=== PATIENT | male | born 1955 | race Caucasian/White ===

== ENCOUNTER → 2019-10-25 | Outpatient (CLI) | payer BC ==
--- NOTE | 2019-10-25 17:03 | KCIC ---
Chest CT without contrast-CT low-dose lung screening Clinical indications: Smoker for 40 years. COMPARISON: None available. TECHNIQUE: Noncontrast low-dose CT scanning of the chest was performed. PQRS compliance Statement One or more of the following individualized dose reduction techniques were utilized for this study: 1. Automated exposure control 2. Adjustment of the mA and/or kV according to patient size 3. Use of iterative reconstruction technique FINDINGS:Small hiatal hernia is evident. No significantly enlarged thoracic lymphadenopathy is evident. No focal aneurysmal dilatation of the thoracic aorta is seen. Calcified atheromatous disease of the coronary arteries is seen. The heart size is normal and no pericardial effusion is seen. No adrenal mass is evident. No significant lung nodule is seen. No lung infiltrate or lung mass is evident. No pleural effusion or pneumothorax is seen. The proximal bronchial tree is patent. No adrenal mass is evident. No lytic process is seen. IMPRESSION: No lung nodule or lung infiltrate. Lung RADS category 1. Recommend annual screening study. Calcified atheromatous disease of the coronary arteries. Small hiatal hernia. Electronically signed by: Connor Lopez MD (10/25/2019 5:00 PM) [id number]
== END | disposition home or self-care (01) ==
LOC: KCIC CT 08:45
PROVIDERS: ATTEND Internal Medicine
DX: F17.210 Nicotine dependence, cigarettes, uncomplicated (principal)
CPT/HCPCS: G0297

== ENCOUNTER → 2019-10-27 | Outpatient (CLI) | payer BC ==
[~2019-10-27] MED LIST: ALBUTEROL SULFATE 2.5 MG/3 ML NEBU. NEB ONE
--- NOTE | 2019-10-27 18:19 | RESP ---
DATE OF SERVICE: 10/27/2019 ATTENDING PHYSICIAN: Dr. Crowder. The patient's FVC was 2.47, which is 63% predicted, FEV1 1.32, which is 45% predicted. The FEV1/FVC ratio was reduced. Post-bronchodilator, there was 17% improvement in FVC and 13% improvement in FEV1. Lung volume showed a total lung capacity of 160% predicted, residual volume 337% predicted. Diffusion capacity was markedly increased. IMPRESSION: 1. Moderate obstructive airway disease. 2. Excellent response to bronchodilators, suggesting a component of reactive airway disease. 3. Lung volumes consistent with air trapping and hyperinflation. 4. Increased diffusion capacity. MADI JOHNSON MD DR: ELAINE/adam JOB#: [id number] / [id number] NAVID Edmondson MD
== END | disposition home or self-care (01) ==
LOC: PF 07:52 → EDUNIT# 08:00
PROVIDERS: ATTEND Internal Medicine
DX: R06.09 Other forms of dyspnea (principal); J44.9 Chronic obstructive pulmonary disease, unspecified
CPT/HCPCS: 94060; 94618; 94640; 94726; 94729; J7613

== ENCOUNTER → 2019-11-04 | Outpatient (CLI) | payer BC ==
--- NOTE | 2019-11-04 11:14 | RAD ---
EXAM: Carotid Doppler sonogram. HISTORY: Carotid bruit. TECHNIQUE: Priest scale and color Doppler sonographic evaluation of the neck with spectral waveform analysis was performed and static images are submitted for review. FINDINGS: There is mild vascular plaque within the carotid bulbs and proximal internal and external carotid arteries. The peak systolic velocity within the right common carotid artery is 136 cm/sec. The peak systolic velocity within the right internal carotid artery is 137 cm/sec and the end diastolic velocity within the right internal carotid artery is 27 cm/sec. The right ICA/CCA ratio is 1.0. The peak systolic velocity within the left common carotid artery is 174 cm/sec. The peak systolic velocity within the left internal carotid artery is 147 cm/sec and the end diastolic velocity within the left internal carotid artery is 30 cm/sec. The left ICA/CCA ratio is 1.1. There is normal antegrade flow within both vertebral arteries. There are increased peak systolic velocities within the external carotid arteries, measuring 202 cm/s on the right and 229 cm/s on the left. There is also an elevated peak systolic velocity within the left subclavian artery measuring 313 cm/s. IMPRESSION: 1. Elevated peak systolic velocities within the left greater than right internal carotid arteries. Despite normal ICA to CCA ratios, this suggests 50-69% stenosis. 2. Elevated peak systolic velocities within the external carotid arteries and left subclavian artery, suggesting hemodynamically significant stenosis. PQRS Compliance Statement - Stenosis calculations for CT, MR and conventional angiography are based upon measurement of the distal ICA diameter in accordance with the NASCET methodology. Stenosis calculations for carotid ultrasound studies are derived from validated velocity criteria which are known to correlate with the NASCET methodology. Electronically signed by: Roma Vann MD (11/04/2019 11:11 AM) [place] [id number]
== END | disposition home or self-care (01) ==
LOC: US 08:26 → EDUNIT# 09:30
PROVIDERS: ATTEND Internal Medicine
DX: I65.23 Occlusion and stenosis of bilateral carotid arteries (principal)
CPT/HCPCS: 93880

== ENCOUNTER 2021-01-20 16:49 | Emergency (ER) | payer BC, OTHER ==
[~2021-01-20] VITALS: Ht 170.2 cm; Wt 64.0 kg
[2021-01-20 18:36] LABS: BASO # 0.1 x10^3/uL (0.0-0.2); BASO % 1 % (0-3); EOS # 0.4 x10^3/uL (0.0-0.7); EOS % 4 % (0-3); HEMATOCRIT 43.6 % (39.0-53.0); HEMOGLOBIN 14.7 g/dL (13.0-17.5); LYMPH # 0.8 x10^3/uL (1.0-4.8); LYMPH % 8 % (24-48); MEAN CORPUSCULAR HEMOGLOBIN 32 pg (25-35); MEAN CORPUSCULAR HGB CONC 34 g/dL (31-37); MEAN CORPUSCULAR VOLUME 94 fL (79-100); MONO # 0.9 x10^3/uL (0.0-1.1); MONO % 8 % (0-9); NEUT # 8.3 x10^3/uL (1.8-7.7); NEUT % 79 % (31-73); PLATELET COUNT 247 x10^3/uL (140-400); RED BLOOD COUNT 4.63 x10^6/uL (4.30-5.70); RED CELL DISTRIBUTION WIDTH 13.3 % (11.5-14.5); WHITE BLOOD COUNT 10.4 x10^3/uL (4.0-11.0)
--- NOTE | 2021-01-20 18:40 | PHYS DOC ---
Past Medical History Past Medical History: COPD, Diabetes-Type II, High Cholesterol, Hypertension Past Surgical History: Other Additional Past Surgical Histo: R FOREARM, LEFT LOWER EXTREMITY SKIN GRAFT Smoking Status: Current Every Day Smoker Alcohol Use: Occasionally General Adult EDM: Chief Complaint: SHORTNESS OF BREATH HPI: HPI: Patient is a 65 year old male with past medical history of hypertension, diabetes, COPD presents with the chief complaint of shortness of breath. Onset of SOB 3 days ago- progressively worse. Associated cough with sputum production. Denies fever or chills. Has been using home medications with mild relief. Patient states current symptoms typical of past copd exacerbation. Denies Chest pain. Review of Systems: Review of Systems: Constitutional: Denies fever or chills. [] Eyes: Denies change in visual acuity. [] HENT: Denies nasal congestion or sore throat. [] Respiratory: positive sob positive cough Cardiovascular: Denies chest pain or edema. [] GI: Denies abdominal pain, nausea, vomiting, bloody stools or diarrhea. [] : Denies dysuria. [] Musculoskeletal: Denies back pain or joint pain. [] Integument: Denies rash. [] Neurologic: Denies headache, focal weakness or sensory changes. [] Endocrine: Denies polyuria or polydipsia. [] Lymphatic: Denies swollen glands. [] Psychiatric: Denies depression or anxiety. [] Heart Score: C/O Chest Pain: N/A Risk Factors: Risk Factors: DM, Current or recent (<one month) smoker, HTN, HLP, family history of CAD, obesity. Risk Scores: Score 0 - 3: 2.5% MACE over next 6 weeks - Discharge Home Score 4 - 6: 20.3% MACE over next 6 weeks - Admit for Clinical Observation Score 7 - 10: 72.7% MACE over next 6 weeks - Early Invasive Strategies Allergies: Allergies: Allergies Coded Allergies Type Severity Reaction Last Updated Verified No Known Medication Allergies Allergy Unknown 10/27/19 Yes Physical Exam: PE: Constitutional: Well developed, well nourished, no acute distress, non-toxic appearance. [] HENT: Normocephalic, atraumatic, bilateral external ears normal, oropharynx moist, no oral exudates, nose normal. [] Eyes: PERRLA, EOMI, conjunctiva normal, no discharge. [] Neck: Normal range of motion, no tenderness, supple, no stridor. [] Cardiovascular:Heart rate regular rhythm, no murmur [] Lungs & Thorax: expiratory wheeze upper varghese bilateral,tachypnea, 93% of 2L, mild respiratory distress Abdomen: Bowel sounds normal, soft, no tenderness, no masses, no pulsatile masses. [] Skin: Warm, dry, no erythema, no rash. [] Back: No tenderness, no CVA tenderness. [] Extremities: No tenderness, no cyanosis, no clubbing, ROM intact, no edema. [] Neurologic: Alert and oriented X 3, normal motor function, normal sensory function, no focal deficits noted. [] Psychologic: Affect normal, judgement normal, mood normal. [] Current Patient Data: Vital Signs: Vital Signs Date Time Temp Pulse Resp B/P (MAP) Pulse Ox O2 Delivery O2 Flow Rate FiO2 01/20/21 17:57 97.6 105 26 158/67 (97) 88 Room Air 97.6 EKG: EKG: [] Radiology/Procedures: Radiology/Procedures: [] Impression: FINDINGS: The cardiomediastinal silhouette is within normal limits. Lungs are clear. There are no significant pleural effusions. There is no pulmonary vascular congestion. No pneumothorax. No suspicious osseous abnormality. IMPRESSION: There is no acute cardiopulmonary process. Course & Med Decision Making: Course & Med Decision Making Pertinent Labs and Imaging studies reviewed. (See chart for details) [] Patient was evaluated for chief complaint. Work-up consisted of laboratory analysis and radiologic imaging. Results reviewed and discussed with patient. Chest x-ray without focal infiltrate. EKG no acute abnormalities. Patient was treated with Solu-Medrol and DuoNeb. Post treatment patient states he feels better. He states he would like to go home. Home prescription will include prednisone and doxycycline Dragon Disclaimer: Dragon Disclaimer: This electronic medical record was generated, in whole or in part, using a voice recognition dictation system. Departure Departure Impression: Primary Impression: COPD exacerbation Disposition: 01 DC HOME SELF CARE/HOMELESS Condition: STABLE Referrals: NAVID TRAN MD (PCP) Patient Instructions: Chronic Obstructive Pulmonary Disease Exacerbation Scripts Doxycycline Hyclate (DOXYCYCLINE HYCLATE) 100 Mg Capsule 1 CAP PO BID, #20 CAP Prov: NEHA ARREOLA DO 01/20/21 Prednisone (PREDNISONE) 20 Mg Tablet 1 TAB PO UD for 12 Days, #15 TAB Take 2 tabs days 1,2,3 1.5 tabs days 3,4,5 1 tab days 6,7,8 0.5 tab days 9,10,11 Prov: NEHA ARREOLA DO 01/20/21 NEHA ARREOLA DO Jan 20, 2021 18:40
[2021-01-20 19:00] VITALS: BP 175/111
[2021-01-20] MEDS ORDERED: IPRATRPIUM/ALBUTEROL 0.5/2.5MG 3 ML NEBU. NEB ONE (19:00)
[2021-01-20] MEDS ORDERED: methylPREDNISolone SOD SUCC PF 125 MG/2 ML VIAL. IV ONE (19:00)
--- NOTE | 2021-01-20 19:09 | RAD ---
XR CHEST 1V 01/20/2021 6:49 PM INDICATION: Shortness of breath COMPARISON: None available TECHNIQUE: Portable frontal view of the chest is provided. FINDINGS: The cardiomediastinal silhouette is within normal limits. Lungs are clear. There are no significant pleural effusions. There is no pulmonary vascular congestion. No pneumothora x. No suspicious osseous abnormality. IMPRESSION: There is no acute cardiopulmonary process. Electronically signed by: Jeanna Soares MD (01/20/2021 7:07 PM) [facility]
--- NOTE | 2021-01-20 19:53 | EKG ---
[facility] [address] [place] [address] Test Date: 2021-01-20 Test Time: 17:26:40 Pat Name: JAMMIE HERNANDEZ Department: Room: Gender: M Winding Operator: : 1955 Requested By: NEHA ARREOLA Order Number: [id number] Reading MD: Measurements Intervals [place] Rate: 102 P: -90 HI: 120 QRS: 87 QRSD: 74 T: 78 QT: 304 QTc: 400 Interpretive Statements SUPRAVENTRICULAR RHYTHM QRS(T) CONTOUR ABNORMALITY CONSISTENT WITH ANTEROSEPTAL INFARCT AGE UNDETERMINED T ABNORMALITY IN ANTERIOR LEADS ABNORMAL ECG RI6.02 No previous ECG available for comparison
[2021-01-20 20:00] LABS: CREATININE 1.2 mg/dL (0.7-1.3); GFR 61.1; POTASSIUM 4.2 mmol/L (3.5-5.1)
[2021-01-20] MEDS ORDERED: PRED20TA PO (20:00)
[2021-01-20] MEDS ORDERED: DOXY100C2 PO (20:00)
[2021-01-20 20:12] LABS: ALBUMIN 3.9 g/dL (3.4-5.0); ALBUMIN/GLOBULIN RATIO 1.1 (1.0-1.7); TOTAL BILIRUBIN 0.3 mg/dL (0.2-1.0); TOTAL PROTEIN 7.4 g/dL (6.4-8.2)
--- NOTE | 2021-01-22 09:03 | NUR ---
IP: Informed pt of negative COVID test. Pt verbalized understanding.
== END 2021-01-20 20:47 | disposition home or self-care (01) ==
LOC: ER 16:49
DX: J44.1 Chronic obstructive pulmonary disease with (acute) exacerbation (principal); Z20.822 Contact with and (suspected) exposure to COVID-19; E11.9 Type 2 diabetes mellitus without complications; I10 Essential (primary) hypertension; F17.200 Nicotine dependence, unspecified, uncomplicated; Z98.890 Other specified postprocedural states; Z88.8 Allergy status to other drugs, medicaments and biological substances
CPT/HCPCS: 36415; 71045; 80053; 84484; 85025; 87070; 87880; 93005; 94640; 96374; 99285; J2930; U0003

== ENCOUNTER 2021-12-06 13:44 | Inpatient (IN) | payer OTHER ==
[~2021-12-06] VITALS: Ht 167.6 cm; Wt 65.7 kg
[~2021-12-06 13:44] MED LIST changes: -ALBUTEROL SULFATE 2.5 MG/3 ML NEBU. NEB ONE; +DOXY100C3 PO; +PRED20TA PO
--- NOTE | 2021-12-06 15:04 | RAD ---
INDICATION: Reason: soa / Spl. Instructions: / History: COMPARISON: January 20, 2021 FINDINGS: Single view of chest obtained. Enlarged cardiomediastinal Silhouette with calcific atherosclerosis. There is some suspected enlarged lymph nodes in the mediastinum. Fullness of the rod. Suspected nodu lar opacities most prominent in the right upper lung measuring up to about 16 mm. IMPRESSION: * Nodular opacities most prominent in the right upper lung. Could be infectious or inflammatory nodu les but neoplastic disease such as primary lung mass or metastatic disease is also within the differe ntial. Would obtain a follow-up in a few weeks to ensure this appropriately resolves to exclude neopl astic cause. Alternatively a CT could be obtained to further assess. Electronically signed by: Aayush Camp MD (12/06/2021 3:01 PM) [id number]
--- NOTE | 2021-12-06 15:05 | PHYS DOC ---
Past Medical History Past Medical History: COPD, Diabetes-Type II, High Cholesterol, Hypertension Past Surgical History: Other Additional Past Surgical Histo: R FOREARM, LEFT LOWER EXTREMITY SKIN GRAFT Smoking Status: Current Every Day Smoker Alcohol Use: Occasionally General Adult EDM: Chief Complaint: ABNORMAL LABS HPI: HPI: Patient is a 66 year old who presents with was called by his primary care doctor to come in for a hemoglobin of 4.5. Patient states for the last couple weeks he has not felt very well and thought it was his COPD acting up. He states he cannot walk far without getting very short of breath. He states at times he will stand up and feel like he is going to pass out. He states he has not passed out. He states that 5 weeks ago he stopped smoking and soon after he stopped smoking began coughing a lot and so he went to his primary care provider. He states that they put him on doxycycline and steroids. He states h e finished that and then went back because he still felt like he was not feeling well and his chest was still tight. He states that they put him on another round of doxycycline which he just finished 3 to 4 days ago. He states that he went and to see his primary care doctor yesterday at which time the gave him another prescription for another round of steroid by mouth that he is to start tomorrow. He states he also did blood work. Patient denies syncope, chest pain, vision change, new numbness or tingling, focal weakness, headache, gavin pain, nausea, vomiting, diarrhea, fever, blood in his stool, vomiting blood, blood in his urine, back pain. He denies any pain at this time. He has a history of diabetes, COPD, hypertension, high cholesterol. Review of Systems: Review of Systems: Constitutional: Denies fever or chills. [] Eyes: Denies change in visual acuity. [] HENT: Denies nasal congestion or sore throat. [] Respiratory: Denies cough or +shortness of breath with exertion. [] Cardiovascular: Denies chest pain or edema. [] GI: Denies abdominal pain, nausea, vomiting, bloody stools or diarrhea. [] : Denies dysuria. [] Musculoskeletal: Denies back pain or joint pain. + Fatigue [] Integument: Denies rash. [] Neurologic: Denies headache, focal weakness or sensory changes. + Dizziness upon standing [] Endocrine: Denies polyuria or polydipsia. [] Lymphatic: Denies swollen glands. [] Psychiatric: Denies depression or anxiety. [] Heart Score: C/O Chest Pain: No Risk Factors: Risk Factors: DM, Current or recent (<one month) smoker, HTN, HLP, family history of CAD, obesity. Risk Scores: Score 0 - 3: 2.5% MACE over next 6 weeks - Discharge Home Score 4 - 6: 20.3% MACE over next 6 weeks - Admit for Clinical Observation Score 7 - 10: 72.7% MACE over next 6 weeks - Early Invasive Strategies Allergies: Allergies: Allergies Coded Allergies Type Severity Reaction Last Updated Verified No Known Medication Allergies Allergy Unknown 10/27/19 Yes Physical Exam: PE: Constitutional: Well developed, well nourished, no acute distress, non-toxic appearance. [] HENT: Normocephalic, atraumatic, bilateral external ears normal, oropharynx moist, no oral exudates, nose normal. [] Eyes: PERRLA, EOMI, conjunctiva normal, no discharge. [] Neck: Normal range of motion, no tenderness, supple, no stridor. [] Cardiovascular:Heart rate tachycardia regular rhythm, no murmur [] Lungs & Thorax: Bilateral upper breath sounds clear and lower diminished to auscultation [] Abdomen: Bowel sounds normal, soft, no tenderness, no masses, no pulsatile masses. [] Skin: Warm, dry, no erythema, no rash. Pale[] Back: No tenderness, no CVA tenderness. [] Extremities: No tenderness, no cyanosis, no clubbing, ROM intact, no edema. [] Neurologic: Alert and oriented X 3, normal motor function, normal sensory function, no focal deficits noted. [] Psychologic: Affect normal, judgement normal, mood normal. [] Current Patient Data: Vital Signs: Vital Signs Date Time Temp Pulse Resp B/P (MAP) Pulse Ox O2 Delivery O2 Flow Rate FiO2 12/06/21 14:31 95 20 131/66 (87) 97 Room Air 12/06/21 13:52 97.7 97.7 EKG: EK by Dr. Hi as a sinus rhythm and no STEMI Radiology/Procedures: Radiology/Procedures: [] Impression: [facility] [address] [place] [address] IMAGING REPORT Signed PATIENT: JAMMIE HERNANDEZ: [id number] : 1955 LOCATION: ER AGE: 66 SEX: M EXAM STATUS: REG ER ORD. PHYSICIAN: GET TOLEDO APRN REASON: soa PROCEDURE: PORTABLE CHEST 1V INDICATION: Reason: soa / Spl. Instructions: / History: COMPARISON: January 20, 2021 FINDINGS: Single view of chest obtained. Enlarged cardiomediastinal Silhouette with calcific atherosclerosis. There is some suspected enlarged lymph nodes in the mediastinum. Fullness of the rod. Suspected nodular opacities most prominent in the right upper lung measuring up to about 16 mm. IMPRESSION: * Nodular opacities most prominent in the right upper lung. Could be infectious or inflammatory nodules but neoplastic disease such as primary lung mass or metastatic disease is also within the differential. Would obtain a follow-up in a few weeks to ensure this appropriately resolves to exclude neoplastic cause. Alternatively a CT could be obtained to further assess. Electronically signed by: Ghassan Johns MD (12/06/2021 3:01 PM) [id number] DICTATED and SIGNED BY: GHASSAN JOHNS MD DATE: 12/06/21 [id number] [facility] [address] [place] [address] IMAGING REPORT Signed PATIENT: JAMMIE HERNANDEZ: [id number] : 1955 LOCATION: ER AGE: 66 SEX: M EXAM STATUS: REG ER ORD. PHYSICIAN: GET TOLEDO APRN REASON: LOW HEMOGLOBIN WITHOUT KNOWN SOURCE, CHEST XRAY ABNORMAL PROCEDURE: CT CHEST ABD PELVIS W/CONTRAST CT chest, abdomen and pelvis with contrast PQRS statement: CT scans at this facility use dose reduction including either automated exposure control, iterative reconstructions, and /or weight based rad iation dosing via mA and kV modification when appropriate to reduce radiation dose to as low as reasonably achievable. Contrast: 75 mL Omnipaque 300 intravenous contrast. HISTORY: Anemia. Low hemoglobin. COMPARISON: CT chest October 25, 2019 Chest findings: Calcified plaque of coronary artery and of the thoracic aorta. Heart size is normal. Pulmonary vessels and esophagus are unremarkable. No enlarged adenopathy in the chest evident. Tiny subcentimeter thickness pleural effusions along the posterior diaphragms and lower lung bases. Trachea and bronchi are unremarkable. No pulmonary edema evident. At the right upper lobe above the fissures there are groundglass opacities as well as some solid nodular densities within groundglass halos most of which measures 10 mm or less in size, with exception of a more dominant larger opacity on image 34 measures 2.3 cm. Bones are unremarkable. Abdomen findings: Lumbar disc disease, there are mild endplate deformities with bony sclerosis likely Schmorl's nodes from degenerative disc disease involving the L3 vertebral endplates. Pancreas, spleen, adrenal glands, kidneys, liver and gallbladder are unremarkable. No obstruction or inflammation of the GI tract. No abdominal fluid or adenopathy. The aorta and iliac artery calcified plaque. Pelvis findings: Bladder, prostate, rectum and bones are unremarkable. No pelvic fluid or adenopathy. IMPRESSION: 1. Solid nodular pulmonary opacities of the right upper lobe measuring up to 2.3 cm in size and groundglass opacities, most likely bronchopneumonia. Follow-up CT imaging in 3 months is advised to document this resolves to exclude the possibility of malignant nodules. 2. Very small pleural effusions. 3. Subtle bony sclerosis of the L3 lumbar vertebra. This is associated with chr onic endplate Schmorl's nodes defects from degenerative disc disease and is possible this is reactive bony sclerosis. Bony sclerosis due to a subtle underlying pathologic osteoblastic bony lesion may not be excluded for which this can be definitively assessed with MR imaging. Electronically signed by: Yesika Pinto MD (12/06/2021 4:14 PM) [facility] DICTATED and SIGNED BY: YESIKA PNITO MD DATE: 12/06/21 [id number] Course & Med Decision Making: Course & Med Decision Making Pertinent Labs and Imaging studies reviewed. (See chart for details) COVID-19 CRITERIA: The patient was evaluated during the global COVID-19 pandemic, and that diagnosis was suspected/considered upon their initial presentation. Their evaluation, treatment and testing was consistent with current guidelines for patients who present with complaints or symptoms that may be related to COVID-19. See HPI. Alert and oriented x4. Ambulatory steady gait. Speaks in full clear sentences. Pale. Tachycardic. Abdomen soft and nontender. Patient is Covid positive and influenza B positive. His hemoglobin is 4.5. I have ordered 2 units of red blood cells. Patient admitted to hospitalist. Rectal Exam: Normal tone, No mass, Positive control Stool: yellow, no blood seen Guaiac: Negative [] Dragon Disclaimer: Harini Disclaimer: This electronic medical record was generated, in whole or in part, using a voice recognition dictation system. COVID-19 Patient Risks: Age 65 or older: No Sign of co-morbidity: Yes Exp to person + for COVID: Yes Exp to PUI: Yes Travel from affected area: No Lower respiratory symptoms: Yes Fever: No Other: Yes (SOA, FATIGUE) PPE Use: Full PPE with N95 mask or PAPR: Yes Departure Departure Impression: Primary Impression: Low hemoglobin Additional Impressions: COVID-19 Influenza B Pneumonia Qualified Codes: J18.9 - Pneumonia, unspecified organism Disposition: ADMITTED INPATIENT Admitting Physician: ARTIS Condition: STABLE Referrals: NAVID TRAN MD (PCP) GET TOLEDO APRN Dec 06, 2021 15:05
[2021-12-06 15:09] LABS: BASO % 0 % (0-3); EOS % 0 % (0-3); HEMATOCRIT 15.9 % (39.0-53.0); LYMPH # 0.4 x10^3/uL (1.0-4.8); LYMPH % 4 % (24-48); MEAN CORPUSCULAR HEMOGLOBIN 20 pg (25-35); MEAN CORPUSCULAR HGB CONC 28 g/dL (31-37); MEAN CORPUSCULAR VOLUME 71 fL (79-100); MONO # 0.9 x10^3/uL (0.0-1.1); MONO % 8 % (0-9); NEUT # 10.7 x10^3/uL (1.8-7.7); NEUT % 89 % (31-73); PLATELET COUNT 290 x10^3/uL (140-400); RED BLOOD COUNT 2.25 x10^6/uL (4.30-5.70); RED CELL DISTRIBUTION WIDTH 19.6 % (11.5-14.5); WHITE BLOOD COUNT 12.1 x10^3/uL (4.0-11.0)
[2021-12-06 15:11] LABS: HEMOGLOBIN 4.5 g/dL (13.0-17.5)
[2021-12-06] MEDS ORDERED: diphenhydrAMINE ORAL ELIXIR 12.5 MG/5 ML ML PO PRN (15:15)
[2021-12-06] MEDS ORDERED: ACETAMINOPHEN 325 MG TABLET. PO PRN ×2 (15:15→17:00)
[2021-12-06] MEDS ORDERED: diphenhydrAMINE HCL 25 MG CAPSULE PO PRN (15:15)
[2021-12-06 15:17] LABS: CALCIUM 8.4 mg/dL (8.5-10.1); CREATININE 1.4 mg/dL (0.7-1.3); POTASSIUM 5.1 mmol/L (3.5-5.1)
[2021-12-06 15:24] LABS: ALBUMIN 3.1 g/dL (3.4-5.0); ALBUMIN/GLOBULIN RATIO 0.9 (1.0-1.7); TOTAL BILIRUBIN 0.4 mg/dL (0.2-1.0); TOTAL PROTEIN 6.4 g/dL (6.4-8.2)
[2021-12-06 15:28] LABS: PROTHROMBIN TIME PATIENT 13.3 SEC (11.7-14.0)
[2021-12-06] MEDS ORDERED: IOHEXOL 300 MG/ML 100ML VIAL. IV ONE (15:45)
[2021-12-06] MEDS ORDERED: CONTRAST GIVEN. MC PRN (15:45)
[2021-12-06 15:49] LABS: % BANDS 5 % (0-9); % LYMPHS 1 % (24-48); % MONOS 3 % (0-10); % SEGS 91 % (35-66); NUCLEATED RBC 2
[2021-12-06 15:54] LABS: ANISOCYTOSIS SLIGHT; HYPOCHROMIA MARKED; MICROCYTOSIS MOD; PLT ESTIMATE ADEQUATE (ADEQUATE); POIKILOCYTOSIS MOD; POLYCHROMASIA MOD
[2021-12-06 16:12] LABS: BIZZARE CELLS FEW; OVALOCYTES FEW; SCHISTOCYTES OCC; SPHEROCYTES OCC; STOMATOCYTES FEW; TEAR DROP CELLS OCC
--- NOTE | 2021-12-06 16:16 | RAD ---
CT chest, abdomen and pelvis with contrast PQRS statement: CT scans at this facility use dose reduction including either automated exposure cont rol, iterative reconstructions, and /or weight based radiation dosing via mA and kV modification when appropriate to reduce radiation dose to as low as reasonably achievable. Contrast: 75 mL Omnipaque 300 intravenous contrast. HISTORY: Anemia. Low hemoglobin. COMPARISON: CT chest October 25, 2019 Chest findings: Calcified plaque of coronary artery and of the thoracic aorta. Heart size is normal. Pulmonary vessels and esophagus are unremarkable. No enlarged adenopathy in the chest evident. Tiny subcentimeter thickness pleural effusions along the posterior diaphragms and lower lung bases. Trache a and bronchi are unremarkable. No pulmonary edema evident. At the right upper lobe above the fissure s there are groundglass opacities as well as some solid nodular densities within groundglass halos mo st of which measures 10 mm or less in size, with exception of a more dominant larger opacity on image 34 measures 2.3 cm. Bones are unremarkable. Abdomen findings: Lumbar disc disease, there are mild endplate deformities with bony sclerosis likely Schmorl's nodes from degenerative disc disease involving the L3 vertebral endplates. Pancreas, splee n, adrenal glands, kidneys, liver and gallbladder are unremarkable. No obstruction or inflammation of the GI tract. No abdominal fluid or adenopathy. The aorta and iliac artery calcified plaque. Pelvis findings: Bladder, prostate, rectum and bones are unremarkable. No pelvic fluid or adenopathy. IMPRESSION: 1. Solid nodular pulmonary opacities of the right upper lobe measuring up to 2.3 cm in size and groun dglass opacities, most likely bronchopneumonia. Follow-up CT imaging in 3 months is advised to docume nt this resolves to exclude the possibility of malignant nodules. 2. Very small pleural effusions. 3. Subtle bony sclerosis of the L3 lumbar vertebra. This is associated with chronic endplate Schmorl' s nodes defects from degenerative disc disease and is possible this is reactive bony sclerosis. Bony sclerosis due to a subtle underlying pathologic osteoblastic bony lesion may not be excluded for whic h this can be definitively assessed with MR imaging. Electronically signed by: Zafar Pinto MD (12/06/2021 4:14 PM) [facility]
[2021-12-06 16:33] LABS: INFLUENZA A PATIENT NEGATIVE (NEGATIVE)
[2021-12-06 16:34] LABS: INFLUENZA B PATIENT POSITIVE (NEGATIVE)
[2021-12-06 16:50] LABS: FECAL OB PT NEGATIVE (NEG)
--- NOTE | 2021-12-06 16:52 | PDOC1 ---
History and Physical Date of Admission Date of Admission DATE: 12/06/21 TIME: 16:51 Identification/Chief Complaint Chief Complaint Shortness of breath Source Source: Patient History of Present Illness History of Present Illness Mr Irby is a 66 yo male with PMHx COPD, DM2, HLD, HTN who presents to ED accompanied by his for further assessment of outpatient Hb 4.5 noted by his primary care physician. He also complains of progressive shortness of breath has been worsening over the past 3 weeks. He quit smoking 5 weeks ago and initially felt he was having a COPD exacerbation and was changed from a Wixela inhaler to Trelegy inhaler. He is finished 2 rounds of doxycycline and steroids over the past 3 weeks and was about to start another dose of steroids on 12/07/2021 when above lab findings were discovered. He has been feeling progressively more weak over the past week as well. He has not noted any blood in his stool and has never had a colonoscopy but he has had outpatient Hemoccults though previously been negative. No chest pain no abdominal pain no nausea vomiting diarrhea. No urinary complaints. No changes in his blood sugar. He is up-to-date with COVID-19 vaccinations including booster has been vaccinated against influenza. Labs with WBC 12.1, Hb 4.5 with MCV 71, platelets 290, INR 1, PT T 26, NA 143, K5.1, BUN 34, CR 1.4, glucose 107, calcium 8.4, bilirubin 0.4, AST 19, ALT 46, alkaline phosphatase 62, LDH 166, albumin 3.1, NT proBNP is 2221, ED fecal occult was negative however her ED staff notes there is actually no stool in the sample, rapid COVID-19 was positive and rapid influenza B+. Chest radiograph concerning for nodular opacities in the right upper lung. CT chest abdomen pelvis with no opacity in the right upper lobe lower lobe 2.3 cm with groundglass opacities concerning for bronchopneumonia. L3 bony abnormality nonspecific. Admitted for further care. Past Medical History Cardiovascular: HTN, Hyperlipidemia Endocrine: Diabetes Past Surgical History Past Surgical History left leg skin grafting. Right forearm I&D Family History Family History: Diabetes, High Cholestrol, Hypertension Social History Smoke: Quit (10/2021) ALCOHOL: rare Drugs: None Current Problem List Problem List Problems Medical Problems: (1) COVID-19 Status: Acute (2) Influenza B Status: Acute (3) Low hemoglobin Status: Acute (4) Pneumonia Status: Acute Current Medications Current Medications Current Medications Acetaminophen (Tylenol) 650 mg 1X PRN PRN PO PRE-TRANSFUSION; Start 12/06/21 at 15:15; Stop 12/07/21 at 15:14 Diphenhydramine HCl (Benadryl Oral Elixir) 12.5 mg 1X PRN PRN PO PRE- TRANSFUSION; Start 12/06/21 at 15:15; Stop 12/07/21 at 15:14 Diphenhydramine HCl (Benadryl) 25 mg PRN 1X PRN PO PRE-TRANSFUSION; Start 12/06/21 at 15:15; Stop 12/07/21 at 15:14 Iohexol (Omnipaque 300 Mg/ml) 60 ml 1X ONCE IV Last administered on 12/06/21at 15:55; Start 12/06/21 at 15:45; Stop 12/06/21 at 15:46; Status DC Info (CONTRAST GIVEN -- Rx MONITORING) 1 each PRN DAILY PRN MC SEE COMMENTS; Start 12/06/21 at 15:45; Stop 12/08/21 at 15:44 Active Scripts Active Doxycycline Hyclate 100 Mg Capsule 1 Cap PO BID Prednisone 20 Mg Tablet 1 Tab PO UD 12 Days Take 2 tabs days 1,2,3 1.5 tabs days 3,4,5 1 tab days 6,7,8 0.5 tab days 9,10,11 Allergies Allergies: Coded Allergies: No Known Medication Allergies (Verified Allergy, Unknown, 10/27/19) NO KNOWN DRUG/MEDICATION OR LATEX ALLERGIES ROS General: YES: Fatigue, Malaise; No: Chills, Night Sweats, Appetite, Other PSYCHOLOGICAL ROS: No: Anxiety, Behavioral Disorder, Concentration difficultie, Decreased libido, Depression, Disorientation, Hallucinations, Hostility, Irritablity, Memory difficulties, Mood Swings, Obsessive thoughts, Physical abuse, Sexual abuse, Sleep disturbances, Suicidal ideation, Other Eyes: No Blurry vision, No Decreased vision, No Double vision, No Dry eyes, No Excessive tearing, No Eye Pain, No Itchy Eyes, No Loss of vision, No Photophobia, No Scotomata, No Uses contacts, No Uses glasses, No Other HEENT: No: Heacaches, Visual Changes, Hearing change, Nasal congestion, Nasal discharge, Oral lesions, Sinus pain, Sore Throat, Epistaxis, Sneezing, Snoring, Tinnitus, Vertigo, Vocal changes, Other ALLERGY AND IMMUNOLOGY: No: Hives, Insect Bite Sensitivity, Itchy/Watery Eyes, Nasal Congestion, Post Nasal Drip, Seasonal Allergies, Other Hematological and Lymphatic: No: Bleeding Problems, Blood Clots, Blood Transfusions, Brusing, Night Sweats, Pallor, Swollen Lymph Nodes, Other ENDOCRINE: No: Breast Changes, Galactorrhea, Hair Pattern Changes, Hot Flashes, Malaise/lethargy, Mood Swings, Palpitations, Polydipsia/polyuria, Skin Changes, Temperature Intolerance, Unexpected Weight Changes, Other Breast: No New/Changing Breast Lumps, No Nipple changes, No Nipple discharge, No Other Respiratory: YES: Cough, Shortness of breath, SOB with excertion, Wheezing; No: Hemoptysis, Orthopnea, Pleuritic Pain, Sputum Changes, Stridor, Tachypnea, Other Cardiovascular: No Chest Pain, No Palpitations, No Orthopnea, No Paroxysmal Noc. Dyspnea, No Edema, No Lt Headedness, No Other Gastrointestinal: No Nausea, No Vomiting, No Abdominal Pain, No Diarrhea, No Constipation, No Melena, No Hematochezia, No Other Genitourinary: No Dysuria, No Frequency, No Incontinence, No Hematuria, No Retention, No Discharge, No Urgency, No Pain, No Flank Pain, No Other, No , No , No , No , No , No , No Musculoskeletal: No Gait Disturbance, No Joint Pain, No Joint Stiffness, No Joint Swelling, No Muscle Pain, No Muscular Weakness, No Pain In:, No Swelling In:, No Other Neurological: No Behavorial Changes, No Bowel/Bladder ControlChng, No Confusion, No Dizziness, No Gait Disturbance, No Headaches, No Impaired Coord/balance, No Memory Loss, No Numbness/Tingling, No Seizures, No Speech Problems, No Tremors, No Visual Changes, No Weakness, No Other Skin: No Dry Skin, No Eczema, No Hair Changes, No Lumps, No Mole Changes, No Mottling, No Nail Changes, No Pruritus, No Rash, No Skin Lesion Changes, No Other, No Acne Physical Exam General: Alert, Oriented X3, Cooperative, moderate distress HEENT: Atraumatic, PERRLA, EOMI, Other (pale oral mucosa) Lungs: Other (Right sided rhonchi and crackles, diffuse wheezes) Heart: S1S2, RRR, no thrills, no rubs, no gallops, no murmurs Abdomen: Normal bowel sounds, Soft, No tenderness, No hepatosplenomegaly, No m asses Rectal Exam: not examined Extremities: No clubbing, No cyanosis, No edema, Normal pulses, No tenderness/swelling Skin: No rashes, No breakdown, No significant lesion Neuro: Normal gait, Normal speech, Strength at 5/5 X4 ext, Normal tone, Sensation intact, Cranial nerves 3-12 NL, Reflexes 2+ Psych/Mental Status: Mental status NL, Mood NL Vitals Vitals Vital Signs Date Time Temp Pulse Resp B/P (MAP) Pulse Ox O2 Delivery O2 Flow Rate FiO2 12/06/21 15:52 84 18 164/79 (107) 98 Room Air 12/06/21 13:52 97.7 97.7 Labs Labs Laboratory Tests Test 12/06/21 14:55 12/06/21 15:53 12/06/21 16:35 White Blood Count 12.1 x10^3/uL (4.0-11.0) Red Blood Count 2.25 x10^6/uL (4.30-5.70) Hemoglobin 4.5 g/dL (13.0-17.5) Hematocrit 15.9 % (39.0-53.0) Mean Corpuscular Volume 71 fL (79-100) Mean Corpuscular Hemoglobin 20 pg (25-35) Mean Corpuscular Hemoglobin Concent 28 g/dL (31-37) Red Cell Distribution Width 19.6 % (11.5-14.5) Platelet Count 290 x10^3/uL (140-400) Neutrophils (%) (Auto) 89 % (31-73) Lymphocytes (%) (Auto) 4 % (24-48) Monocytes (%) (Auto) 8 % (0-9) Eosinophils (%) (Auto) 0 % (0-3) Basophils (%) (Auto) 0 % (0-3) Neutrophils # (Auto) 10.7 x10^3/uL (1.8-7.7) Lymphocytes # (Auto) 0.4 x10^3/uL (1.0-4.8) Monocytes # (Auto) 0.9 x10^3/uL (0.0-1.1) Eosinophils # (Auto) 0.0 x10^3/uL (0.0-0.7) Basophils # (Auto) 0.0 x10^3/uL (0.0-0.2) Segmented Neutrophils % 91 % (35-66) Band Neutrophils % 5 % (0-9) Lymphocytes % 1 % (24-48) Monocytes % 3 % (0-10) Nucleated Red Blood Cells 2 Platelet Estimate Adequate (ADEQUATE) Polychromasia Mod Hypochromasia Marked Poikilocytosis Mod Basophilic Stippling Present Anisocytosis Slight Microcytosis Mod Spherocytes Occ Tear Drop Cells Occ Ovalocytes Few Stomatocytes Few Schistocytes Occ RBC Morphology Bizarre Forms Few Prothrombin Time 13.3 SEC (11.7-14.0) Prothromb Time International Ratio 1.0 (0.8-1.1) Sodium Level 143 mmol/L (136-145) Potassium Level 5.1 mmol/L (3.5-5.1) Chloride Level 107 mmol/L (98-107) Carbon Dioxide Level 24 mmol/L (21-32) Anion Gap 12 (6-14) Blood Urea Nitrogen 34 mg/dL (8-26) Creatinine 1.4 mg/dL (0.7-1.3) Estimated GFR (Cockcroft-Gault) 51.0 BUN/Creatinine Ratio 24 (6-20) Glucose Level 107 mg/dL (70-99) Calcium Level 8.4 mg/dL (8.5-10.1) Total Bilirubin 0.4 mg/dL (0.2-1.0) Aspartate Amino Transf (AST/SGOT) 19 U/L (15-37) Alanine Aminotransferase (ALT/SGPT) 46 U/L (16-63) Alkaline Phosphatase 62 U/L (46-116) CB-Ess-X-Type Natriuretic Peptide 2221 pg/mL (0-124) Total Protein 6.4 g/dL (6.4-8.2) Albumin 3.1 g/dL (3.4-5.0) Albumin/Globulin Ratio 0.9 (1.0-1.7) Influenza Type A Antigen Negative (NEGATIVE) Influenza Type B Antigen Positive (NEGATIVE) SARS-CoV-2 Antigen (Rapid) Positive (NEGATIVE) Stool Occult Blood Negative (NEG) Laboratory Tests Test 12/06/21 14:55 12/06/21 15:53 12/06/21 16:35 White Blood Count 12.1 x10^3/uL (4.0-11.0) Red Blood Count 2.25 x10^6/uL (4.30-5.70) Hemoglobin 4.5 g/dL (13.0-17.5) Hematocrit 15.9 % (39.0-53.0) Mean Corpuscular Volume 71 fL (79-100) Mean Corpuscular Hemoglobin 20 pg (25-35) Mean Corpuscular Hemoglobin Concent 28 g/dL (31-37) Red Cell Distribution Width 19.6 % (11.5-14.5) Platelet Count 290 x10^3/uL (140-400) Neutrophils (%) (Auto) 89 % (31-73) Lymphocytes (%) (Auto) 4 % (24-48) Monocytes (%) (Auto) 8 % (0-9) Eosinophils (%) (Auto) 0 % (0-3) Basophils (%) (Auto) 0 % (0-3) Neutrophils # (Auto) 10.7 x10^3/uL (1.8-7.7) Lymphocytes # (Auto) 0.4 x10^3/uL (1.0-4.8) Monocytes # (Auto) 0.9 x10^3/uL (0.0-1.1) Eosinophils # (Auto) 0.0 x10^3/uL (0.0-0.7) Basophils # (Auto) 0.0 x10^3/uL (0.0-0.2) Segmented Neutrophils % 91 % (35-66) Band Neutrophils % 5 % (0-9) Lymphocytes % 1 % (24-48) Monocytes % 3 % (0-10) Nucleated Red Blood Cells 2 Platelet Estimate Adequate (ADEQUATE) Polychromasia Mod Hypochromasia Marked Poikilocytosis Mod Basophilic Stippling Present Anisocytosis Slight Microcytosis Mod Spherocytes Occ Tear Drop Cells Occ Ovalocytes Few Stomatocytes Few Schistocytes Occ RBC Morphology Bizarre Forms Few Prothrombin Time 13.3 SEC (11.7-14.0) Prothromb Time International Ratio 1.0 (0.8-1.1) Sodium Level 143 mmol/L (136-145) Potassium Level 5.1 mmol/L (3.5-5.1) Chloride Level 107 mmol/L (98-107) Carbon Dioxide Level 24 mmol/L (21-32) Anion Gap 12 (6-14) Blood Urea Nitrogen 34 mg/dL (8-26) Creatinine 1.4 mg/dL (0.7-1.3) Estimated GFR (Cockcroft-Gault) 51.0 BUN/Creatinine Ratio 24 (6-20) Glucose Level 107 mg/dL (70-99) Calcium Level 8.4 mg/dL (8.5-10.1) Total Bilirubin 0.4 mg/dL (0.2-1.0) Aspartate Amino Transf (AST/SGOT) 19 U/L (15-37) Alanine Aminotransferase (ALT/SGPT) 46 U/L (16-63) Alkaline Phosphatase 62 U/L (46-116) LO-Pum-E-Type Natriuretic Peptide 2221 pg/mL (0-124) Total Protein 6.4 g/dL (6.4-8.2) Albumin 3.1 g/dL (3.4-5.0) Albumin/Globulin Ratio 0.9 (1.0-1.7) Influenza Type A Antigen Negative (NEGATIVE) Influenza Type B Antigen Positive (NEGATIVE) SARS-CoV-2 Antigen (Rapid) Positive (NEGATIVE) Stool Occult Blood Negative (NEG) Images Images PORTABLE CHEST 1V Radiograph: Single view of chest obtained. Enlarged cardiomediastinal Silhouette with calcific atherosclerosis. There is some suspected enlarged lymph nodes in the mediastinum. Fullness of the rod. Suspected nodular opacities most prominent in the right upper lung measuring up to about 16 mm. IMPRESSION: * Nodular opacities most prominent in the right upper lung. Could be infectious or inflammatory nodules but neoplastic disease such as primary lung mass or metastatic disease is also within the differential. Would obtain a follow-up in a few weeks to ensure this appropriately resolves to exclude neoplastic cause. Alternatively a CT could be obtained to further assess. CT chest, abdomen and pelvis with contrast Chest findings: Calcified plaque of coronary artery and of the thoracic aorta. Heart size is normal. Pulmonary vessels and esophagus are unremarkable. No enlarged adenopathy in the chest evident. Tiny subcentimeter thickness pleural effusions along the posterior diaphragms and lower lung bases. Trachea and bronchi are unremarkable. No pulmonary edema evident. At the right upper lobe above the fissures there are groundglass opacities as well as some solid nodular densities within groundglass halos most of which measures 10 mm or less in size, with exception of a more dominant larger opacity on image 34 measures 2.3 cm. Bones are unremarkable. Abdomen findings: Lumbar disc disease, there are mild endplate deformities with bony sclerosis likely Schmorl's nodes from degenerative disc disease involving the L3 vertebral endplates. Pancreas, spleen, adrenal glands, kidneys, liver and gallbladder are unremarkable. No obstruction or inflammation of the GI tract. No abdominal fluid or adenopathy. The aorta and iliac artery calcified plaque. Pelvis findings: Bladder, prostate, rectum and bones are unremarkable. No pelvic fluid or adenopathy. IMPRESSION: 1. Solid nodular pulmonary opacities of the right upper lobe measuring up to 2.3 cm in size and groundglass opacities, most likely bronchopneumonia. Follow-up CT imaging in 3 months is advised to document this resolves to exclude the possibility of malignant nodules. 2. Very small pleural effusions. 3. Subtle bony sclerosis of the L3 lumbar vertebra. This is associated with chronic endplate Schmorl's nodes defects from degenerative disc disease and is possible this is reactive bony sclerosis. Bony sclerosis due to a subtle underlying pathologic osteoblastic bony lesion may not be excluded for which this can be definitively assessed with MR imaging. VTE Prophylaxis Ordered VTE Prophylaxis Devices: Yes VTE Pharmacological Prophylaxi: No Assessment/Plan Assessment/Plan Shortness of breath - multifactorial, clearly symptomatic acute anemia. Maybe flu B and Covid 19 and post obstructive right upper lobe bacterial pneumonia play a role Acute anemia - will check reticulocytes, iron, likely GI losses. Will repeat fecal occult. Transfuse 2u PRBC for severity of acute anemia Pneumonia - likely gram negative given structural lung disease, long smoking history. Will consult pulm given possible need for follow CT outpatient and obstructive possibility Influenza B - patient wishes for tamiflu treatment, advised likely this will not alter the course COVID 19 - not hypoxia, no clear role for treatment other than supportive care. Paxolovid and Sotrovimab are only indicated for outpatient treatment. COPD - cont outpatient inhalers, not clearly in acute exacerbation. I don't see an immediate indication for further steroids Diabetes-Type II - sliding scale insulin High Cholesterol - home statin Hypertension - home antihypertensives Smoker - just quit within 5 weeks CARYL - likely on some mild CKD - likely vasomotor nephropathy, monitor renal function Leukocytosis - steroid vs sepsis related. Treating sepsis with fluids, antibiotics, monitor CBC FEN - ADA diet PPX - SCDs FULL CODE Dispo - inpatient Justifications for Admission Other Justification BALJINDER GOEL MD Dec 06, 2021 16:52
[2021-12-06] MEDS ORDERED: guaiFENesin DM 200MG/20MG 10 ML SYRUP PO PRN (17:00)
[2021-12-06] MEDS ORDERED: IV DEXTROSE 5% 250 ML BAG. IV PRN (17:00)
[2021-12-06] MEDS ORDERED: ONDANSETRON PF 4 MG/2 ML VIAL. IVP PRN (17:00)
[2021-12-06] MEDS ORDERED: fentaNYL PF VIAL 100 MCG/2 ML VIAL IVP PRN (17:00)
[2021-12-06] MEDS ORDERED: DEXTROSE 50% 25 GM / 50ML DISP.SYRIN. IV PRN (17:00)
[2021-12-06] MEDS: INSULIN LISPRO 300 UNITS/3 ML VIAL. SQ SCH (17:00)
[2021-12-06] MEDS ORDERED: traMADol 50 MG TABLET PO PRN (17:00)
[2021-12-06] MEDS: OSELTAMIVIR 30 MG CAPSULE PO SCH ×2 (18:32→20:19)
[2021-12-06] MEDS: cefTRIAXone IV Push 1 GM VIAL. IVP SCH (18:33)
[2021-12-06 19:00] VITALS: BP 155/50
[2021-12-06] MEDS ORDERED: ALBUTEROL SULFATE 8GM INHALER. INH PRN (19:30)
[2021-12-06] MEDS: IPRATROPIUM/ALBUTEROL 20/100mcg/INH INHALER. INH SCH (20:17)
[2021-12-06] MEDS: ZINC SULFATE 220 MG CAPSULE. PO SCH (20:19)
[2021-12-06] MEDS: ASCORBIC ACID 500 MG TABLET PO SCH (20:19)
[2021-12-06] MEDS: ATORVASTATIN CALCIUM 40 MG TABLET. PO SCH (20:19)
[2021-12-06] MEDS: THIAMINE 100 MG TABLET. PO SCH (20:19)
[2021-12-06] MEDS: DOXYCYCLINE HYCLATE 100 MG in IV DEXTROSE 5% 100ML 100 ML IV SCH (20:20)
[2021-12-06 23:00] VITALS: BP 138/38
[2021-12-06 23:10] VITALS: BP 142/43
[2021-12-06 23:25] VITALS: BP 158/53
[2021-12-06] MEDS ORDERED: ATOR40TA59 PO (23:57)
[2021-12-06] MEDS ORDERED: NAPR220C4 PO (23:57)
[2021-12-06] MEDS ORDERED: IPRA3AMP29 NEB (23:57)
[2021-12-06] MEDS ORDERED: FLUT1BLS15 IH (23:57)
[2021-12-06] MEDS ORDERED: MULT-245 PO (23:57)
[2021-12-06] MEDS ORDERED: ASPI-630 PO (23:57)
[2021-12-06] MEDS ORDERED: prednisone (23:57)
[2021-12-07] VITALS (20 sets, daily range): BP systolic 116–154; BP diastolic 44–74
[2021-12-07] MEDS ORDERED: METF-658 PO (06:30)
[2021-12-07] MEDS: INSULIN LISPRO 300 UNITS/3 ML VIAL. SQ SCH ×3 (07:53→16:39)
[2021-12-07] MEDS ORDERED: IRON SUCROSE COMPLEX 400 MG in IV NORMAL SALINE 250ML 250 ML IV ONE (08:00)
[2021-12-07] MEDS: IPRATROPIUM/ALBUTEROL 20/100mcg/INH INHALER. INH SCH ×4 (08:00→20:00)
[2021-12-07 08:15] LABS: BASO % 0 % (0-3); EOS % 0 % (0-3); HEMATOCRIT 22.4 % (39.0-53.0); LYMPH % 8 % (24-48); MEAN CORPUSCULAR HEMOGLOBIN 23 pg (25-35); MEAN CORPUSCULAR HGB CONC 30 g/dL (31-37); MEAN CORPUSCULAR VOLUME 77 fL (79-100); MONO # 0.9 x10^3/uL (0.0-1.1); MONO % 7 % (0-9); NEUT # 9.8 x10^3/uL (1.8-7.7); NEUT % 84 % (31-73); PLATELET COUNT 247 x10^3/uL (140-400); RED BLOOD COUNT 2.93 x10^6/uL (4.30-5.70); RED CELL DISTRIBUTION WIDTH 22.7 % (11.5-14.5); WHITE BLOOD COUNT 11.7 x10^3/uL (4.0-11.0)
[2021-12-07 08:20] LABS: HEMOGLOBIN 6.8 g/dL (13.0-17.5)
[2021-12-07 08:49] LABS: ALBUMIN 2.6 g/dL (3.4-5.0); ALBUMIN/GLOBULIN RATIO 0.8 (1.0-1.7); CALCIUM 7.5 mg/dL (8.5-10.1); CREATININE 1.2 mg/dL (0.7-1.3); POTASSIUM 4.5 mmol/L (3.5-5.1); TOTAL BILIRUBIN 0.7 mg/dL (0.2-1.0); TOTAL PROTEIN 5.7 g/dL (6.4-8.2)
--- NOTE | 2021-12-07 08:58 | PDOC ---
[employer] PROGRESS NOTE Date of Service DOS: DATE: 12/07/21 TIME: 08:55 Chief Complaint Chief Complaint Shortness of breath - multifactorial, clearly symptomatic acute anemia. Maybe flu B and Covid 19 and post obstructive right upper lobe bacterial pneumonia play a role Acute anemia - will check reticulocytes, iron, likely GI losses. Will repeat fecal occult. Transfused 2u PRBC for severity of acute anemia Pneumonia - likely gram negative given structural lung disease, long smoking history. Will consult pulm given possible need for follow CT outpatient and obstructive possibility Influenza B - patient wishes for tamiflu treatment, advised likely this will not alter the course COVID 19 - not hypoxia, no clear role for treatment other than supportive care. Paxolovid and Sotrovimab are only indicated for outpatient treatment. COPD - cont outpatient inhalers, not clearly in acute exacerbation. I don't see an immediate indication for further steroids Diabetes-Type II - sliding scale insulin High Cholesterol - home statin Hypertension - home antihypertensives Smoker - just quit within 5 weeks CARYL - likely on some mild CKD - likely vasomotor nephropathy, monitor renal function Leukocytosis - steroid vs sepsis related. Treating sepsis with fluids, antibiotics, monitor CBC FEN - ADA diet PPX - SCDs FULL CODE Dispo - inpatient History of Present Illness History of Present Illness Mr Irby is a 66 yo male with PMHx COPD, DM2, HLD, HTN who presents to ED accompanied by his for further assessment of outpatient Hb 4.5 noted by his primary care physician. He also complains of progressive shortness of breath has been worsening over the past 3 weeks. He quit smoking 5 weeks ago and initially felt he was having a COPD exacerbation and was changed from a Wixela inhaler to Trelegy inhaler. He is finished 2 rounds of doxycycline and steroids over the past 3 weeks and was about to start another dose of steroids on 12/07/2021 when above lab findings were discovered. He has been feeling progressively more weak over the past week as well. He has not noted any blood in his stool and has never had a colonoscopy but he has had outpatient Hemoccults though previously been negative. No chest pain no abdominal pain no nausea vomiting diarrhea. No urinary complaints. No changes in his blood sugar. He is up-to-date with COVID-19 vaccinations including booster has been vaccinated against influenza. Labs with WBC 12.1, Hb 4.5 with MCV 71, platelets 290, INR 1, PT T 26, NA 143, K5.1, BUN 34, CR 1.4, glucose 107, calcium 8.4, bilirubin 0.4, AST 19, ALT 46, alkaline phosphatase 62, LDH 166, albumin 3.1, NT proBNP is 2221, ED fecal occult was negative however her ED staff notes there is actually no stool in the sample, rapid COVID-19 was positive and rapid influenza B+. Chest radiograph concerning for nodular opacities in the right upper lung. CT chest abdomen pelvis with no opacity in the right upper lobe lower lobe 2.3 cm with groundglass opacities concerning for bronchopneumonia. L3 bony abnormality nonspecific. Admitted for further care. 12/07: Hb 6.8. Feels the shortness of breath is improved minimal cough. Blood sugar in the mid 100s. Feeling weak but overall a little better. Vitals/I&O Vitals/I&O: Vital Signs Date Time Temp Pulse Resp B/P (MAP) Pulse Ox O2 Delivery O2 Flow Rate FiO2 12/07/21 07:55 Room Air 12/07/21 06:01 97.4 75 18 143/53 97.4 12/06/21 23:00 98 I & O 12/06/21 12/06/21 12/07/21 15:00 23:00 07:00 Intake Total 180 ml Output Total 600 ml Balance -420 ml Physical Exam General: Alert, Oriented X3, Cooperative, moderate distress Abdomen: Normal bowel sounds, Soft, No tenderness, No hepatosplenomegaly, No masses Extremities: No clubbing, No cyanosis, No edema, Normal pulses, No tenderness/swelling Skin: No rashes, No breakdown, No significant lesion Labs Labs: Laboratory Tests Test 12/06/21 14:55 12/06/21 15:53 12/06/21 16:35 12/06/21 18:31 White Blood Count 12.1 x10^3/uL (4.0-11.0) Red Blood Count 2.27 x10^6/uL (4.30-5.70) Hemoglobin 4.5 g/dL (13.0-17.5) Hematocrit 15.9 % (39.0-53.0) Mean Corpuscular Volume 71 fL (79-100) Mean Corpuscular Hemoglobin 20 pg (25-35) Mean Corpuscular Hemoglobin Concent 28 g/dL (31-37) Red Cell Distribution Width 19.6 % (11.5-14.5) Platelet Count 290 x10^3/uL (140-400) Neutrophils (%) (Auto) 89 % (31-73) Lymphocytes (%) (Auto) 4 % (24-48) Monocytes (%) (Auto) 8 % (0-9) Eosinophils (%) (Auto) 0 % (0-3) Basophils (%) (Auto) 0 % (0-3) Neutrophils # (Auto) 10.7 x10^3/uL (1.8-7.7) Lymphocytes # (Auto) 0.4 x10^3/uL (1.0-4.8) Monocytes # (Auto) 0.9 x10^3/uL (0.0-1.1) Eosinophils # (Auto) 0.0 x10^3/uL (0.0-0.7) Basophils # (Auto) 0.0 x10^3/uL (0.0-0.2) Segmented Neutrophils % 91 % (35-66) Band Neutrophils % 5 % (0-9) Lymphocytes % 1 % (24-48) Monocytes % 3 % (0-10) Nucleated Red Blood Cells 2 Platelet Estimate Adequate (ADEQUATE) Polychromasia Mod Hypochromasia Marked Poikilocytosis Mod Basophilic Stippling Present Anisocytosis Slight Microcytosis Mod Spherocytes Occ Tear Drop Cells Occ Ovalocytes Few Stomatocytes Few Schistocytes Occ RBC Morphology Bizarre Forms Few Absolute Reticulocyte Count 0.092 x10^6/uL (0.020-0.120) Percent Reticulocyte Count 4.1 % (0.5-2.3) Immature Reticulocyte Fraction 0.51 (0.20-0.60) Prothrombin Time 13.3 SEC (11.7-14.0) Prothromb Time International Ratio 1.0 (0.8-1.1) Activated Partial Thromboplast Time 26 SEC (24-38) Sodium Level 143 mmol/L (136-145) Potassium Level 5.1 mmol/L (3.5-5.1) Chloride Level 107 mmol/L (98-107) Carbon Dioxide Level 24 mmol/L (21-32) Anion Gap 12 (6-14) Blood Urea Nitrogen 34 mg/dL (8-26) Creatinine 1.4 mg/dL (0.7-1.3) Estimated GFR (Cockcroft-Gault) 51.0 BUN/Creatinine Ratio 24 (6-20) Glucose Level 107 mg/dL (70-99) Calcium Level 8.4 mg/dL (8.5-10.1) Iron Level 7 ug/dL (65-175) Total Iron Binding Capacity 429 ug/dL (250-450) Iron Saturation 2 % (15-34) Total Bilirubin 0.4 mg/dL (0.2-1.0) Aspartate Amino Transf (AST/SGOT) 19 U/L (15-37) Alanine Aminotransferase (ALT/SGPT) 46 U/L (16-63) Alkaline Phosphatase 62 U/L (46-116) Lactate Dehydrogenase 166 U/L (85-227) AJ-Xul-I-Type Natriuretic Peptide 2221 pg/mL (0-124) Total Protein 6.4 g/dL (6.4-8.2) Albumin 3.1 g/dL (3.4-5.0) Albumin/Globulin Ratio 0.9 (1.0-1.7) Vitamin B12 Level 971 pg/mL (247-911) Thyroid Stimulating Hormone (TSH) 0.340 uIU/mL (0.358-3.74) Influenza Type A Antigen Negative (NEGATIVE) Influenza Type B Antigen Positive (NEGATIVE) SARS-CoV-2 Antigen (Rapid) Positive (NEGATIVE) Stool Occult Blood Negative (NEG) Glucose (Fingerstick) 98 mg/dL (70-99) Test 12/06/21 20:19 12/07/21 07:40 12/07/21 07:51 Glucose (Fingerstick) 177 mg/dL (70-99) 106 mg/dL (70-99) White Blood Count 11.7 x10^3/uL (4.0-11.0) Red Blood Count 2.93 x10^6/uL (4.30-5.70) Hemoglobin 6.8 g/dL (13.0-17.5) Hematocrit 22.4 % (39.0-53.0) Mean Corpuscular Volume 77 fL (79-100) Mean Corpuscular Hemoglobin 23 pg (25-35) Mean Corpuscular Hemoglobin Concent 30 g/dL (31-37) Red Cell Distribution Width 22.7 % (11.5-14.5) Platelet Count 247 x10^3/uL (140-400) Neutrophils (%) (Auto) 84 % (31-73) Lymphocytes (%) (Auto) 8 % (24-48) Monocytes (%) (Auto) 7 % (0-9) Eosinophils (%) (Auto) 0 % (0-3) Basophils (%) (Auto) 0 % (0-3) Neutrophils # (Auto) 9.8 x10^3/uL (1.8-7.7) Lymphocytes # (Auto) 1.0 x10^3/uL (1.0-4.8) Monocytes # (Auto) 0.9 x10^3/uL (0.0-1.1) Eosinophils # (Auto) 0.0 x10^3/uL (0.0-0.7) Basophils # (Auto) 0.0 x10^3/uL (0.0-0.2) Assessment and Plan Assessmemt and Plan Problems Medical Problems: (1) COVID-19 Status: Acute (2) Influenza B Status: Acute (3) Low hemoglobin Status: Acute (4) Pneumonia Status: Acute Comment Review of Relevant I have reviewed the following items teodora (where applicable) has been applied. Medications: Current Medications Medications (Trade) Dose Ordered Sig/Dimitrios Route PRN Reason Start Time Stop Time Status Last Admin Dose Admin Iohexol (Omnipaque 300 Mg/ml) 60 ml 1X ONCE IV 12/06/21 15:45 12/06/21 15:46 DC 12/06/21 15:55 Ceftriaxone Sodium (Rocephin) 1 gm DAILY IVP 12/06/21 17:00 12/06/21 18:33 Oseltamivir Phosphate (Tamiflu) 30 mg BID PO 12/06/21 18:00 12/11/21 17:59 12/06/21 20:19 Albuterol/ Ipratropium (Combivent Respimat 20-100 Mcg) 1 puff RTQID INH 12/06/21 20:00 12/07/21 08:00 Doxycycline Hyclate 100 mg/ Dextrose 100 ml @ 50 mls/hr Q12HR IV 12/06/21 21:00 12/06/21 20:20 Zinc Sulfate (Orazinc) 220 mg DAILY PO 12/06/21 21:00 12/06/21 20:19 Thiamine Mononitrate (Vitamin B-1) 100 mg DAILY PO 12/06/21 21:00 12/06/21 20:19 Ascorbic Acid (Vitamin C) 500 mg DAILY PO 12/06/21 21:00 12/06/21 20:19 Atorvastatin Calcium (Lipitor) 40 mg QHS PO 12/06/21 21:00 12/06/21 20:19 Justifications for Admission Other Justification BALJINDER GOEL MD Dec 07, 2021 08:58
[2021-12-07] MEDS: FLUTICASONE/VILANTEROL 200/25 INHALER. INH SCH (10:03)
[2021-12-07] MEDS: ASPIRIN CHEWABLE 81 MG TABLET. PO SCH (10:09)
[2021-12-07] MEDS: ASCORBIC ACID 500 MG TABLET PO SCH (10:10)
[2021-12-07] MEDS: cefTRIAXone IV Push 1 GM VIAL. IVP SCH (10:10)
[2021-12-07] MEDS: THIAMINE 100 MG TABLET. PO SCH (10:10)
[2021-12-07] MEDS: ZINC SULFATE 220 MG CAPSULE. PO SCH (10:10)
--- NOTE | 2021-12-07 10:23 | PDOC ---
PULMONARY PROGRESS NOTES DATE: 12/07/21 TIME: 10:23 Vitals Vital Signs Date Time Temp Pulse Resp B/P (MAP) Pulse Ox O2 Delivery O2 Flow Rate FiO2 12/07/21 10:09 81 150/59 12/07/21 07:55 Room Air 12/07/21 07:00 97.9 18 100 97.9 Labs Laboratory Tests Test 12/06/21 14:55 12/06/21 15:53 12/06/21 16:35 12/06/21 18:31 White Blood Count 12.1 x10^3/uL (4.0-11.0) Red Blood Count 2.27 x10^6/uL (4.30-5.70) Hemoglobin 4.5 g/dL (13.0-17.5) Hematocrit 15.9 % (39.0-53.0) Mean Corpuscular Volume 71 fL (79-100) Mean Corpuscular Hemoglobin 20 pg (25-35) Mean Corpuscular Hemoglobin Concent 28 g/dL (31-37) Red Cell Distribution Width 19.6 % (11.5-14.5) Platelet Count 290 x10^3/uL (140-400) Neutrophils (%) (Auto) 89 % (31-73) Lymphocytes (%) (Auto) 4 % (24-48) Monocytes (%) (Auto) 8 % (0-9) Eosinophils (%) (Auto) 0 % (0-3) Basophils (%) (Auto) 0 % (0-3) Neutrophils # (Auto) 10.7 x10^3/uL (1.8-7.7) Lymphocytes # (Auto) 0.4 x10^3/uL (1.0-4.8) Monocytes # (Auto) 0.9 x10^3/uL (0.0-1.1) Eosinophils # (Auto) 0.0 x10^3/uL (0.0-0.7) Basophils # (Auto) 0.0 x10^3/uL (0.0-0.2) Segmented Neutrophils % 91 % (35-66) Band Neutrophils % 5 % (0-9) Lymphocytes % 1 % (24-48) Monocytes % 3 % (0-10) Nucleated Red Blood Cells 2 Platelet Estimate Adequate (ADEQUATE) Polychromasia Mod Hypochromasia Marked Poikilocytosis Mod Basophilic Stippling Present Anisocytosis Slight Microcytosis Mod Spherocytes Occ Tear Drop Cells Occ Ovalocytes Few Stomatocytes Few Schistocytes Occ RBC Morphology Bizarre Forms Few Absolute Reticulocyte Count 0.092 x10^6/uL (0.020-0.120) Percent Reticulocyte Count 4.1 % (0.5-2.3) Immature Reticulocyte Fraction 0.51 (0.20-0.60) Prothrombin Time 13.3 SEC (11.7-14.0) Prothromb Time International Ratio 1.0 (0.8-1.1) Activated Partial Thromboplast Time 26 SEC (24-38) Sodium Level 143 mmol/L (136-145) Potassium Level 5.1 mmol/L (3.5-5.1) Chloride Level 107 mmol/L (98-107) Carbon Dioxide Level 24 mmol/L (21-32) Anion Gap 12 (6-14) Blood Urea Nitrogen 34 mg/dL (8-26) Creatinine 1.4 mg/dL (0.7-1.3) Estimated GFR (Cockcroft-Gault) 51.0 BUN/Creatinine Ratio 24 (6-20) Glucose Level 107 mg/dL (70-99) Calcium Level 8.4 mg/dL (8.5-10.1) Iron Level 7 ug/dL (65-175) Total Iron Binding Capacity 429 ug/dL (250-450) Iron Saturation 2 % (15-34) Total Bilirubin 0.4 mg/dL (0.2-1.0) Aspartate Amino Transf (AST/SGOT) 19 U/L (15-37) Alanine Aminotransferase (ALT/SGPT) 46 U/L (16-63) Alkaline Phosphatase 62 U/L (46-116) Lactate Dehydrogenase 166 U/L (85-227) GN-Auj-T-Type Natriuretic Peptide 2221 pg/mL (0-124) Total Protein 6.4 g/dL (6.4-8.2) Albumin 3.1 g/dL (3.4-5.0) Albumin/Globulin Ratio 0.9 (1.0-1.7) Vitamin B12 Level 971 pg/mL (247-911) Thyroid Stimulating Hormone (TSH) 0.340 uIU/mL (0.358-3.74) Influenza Type A Antigen Negative (NEGATIVE) Influenza Type B Antigen Positive (NEGATIVE) SARS-CoV-2 Antigen (Rapid) Positive (NEGATIVE) Stool Occult Blood Negative (NEG) Glucose (Fingerstick) 98 mg/dL (70-99) Test 12/06/21 20:19 12/07/21 07:40 12/07/21 07:51 Glucose (Fingerstick) 177 mg/dL (70-99) 106 mg/dL (70-99) White Blood Count 11.7 x10^3/uL (4.0-11.0) Red Blood Count 2.93 x10^6/uL (4.30-5.70) Hemoglobin 6.8 g/dL (13.0-17.5) Hematocrit 22.4 % (39.0-53.0) Mean Corpuscular Volume 77 fL (79-100) Mean Corpuscular Hemoglobin 23 pg (25-35) Mean Corpuscular Hemoglobin Concent 30 g/dL (31-37) Red Cell Distribution Width 22.7 % (11.5-14.5) Platelet Count 247 x10^3/uL (140-400) Neutrophils (%) (Auto) 84 % (31-73) Lymphocytes (%) (Auto) 8 % (24-48) Monocytes (%) (Auto) 7 % (0-9) Eosinophils (%) (Auto) 0 % (0-3) Basophils (%) (Auto) 0 % (0-3) Neutrophils # (Auto) 9.8 x10^3/uL (1.8-7.7) Lymphocytes # (Auto) 1.0 x10^3/uL (1.0-4.8) Monocytes # (Auto) 0.9 x10^3/uL (0.0-1.1) Eosinophils # (Auto) 0.0 x10^3/uL (0.0-0.7) Basophils # (Auto) 0.0 x10^3/uL (0.0-0.2) Sodium Level 139 mmol/L (136-145) Potassium Level 4.5 mmol/L (3.5-5.1) Chloride Level 107 mmol/L (98-107) Carbon Dioxide Level 24 mmol/L (21-32) Anion Gap 8 (6-14) Blood Urea Nitrogen 28 mg/dL (8-26) Creatinine 1.2 mg/dL (0.7-1.3) Estimated GFR (Cockcroft-Gault) 61.0 BUN/Creatinine Ratio 23 (6-20) Glucose Level 100 mg/dL (70-99) Calcium Level 7.5 mg/dL (8.5-10.1) Total Bilirubin 0.7 mg/dL (0.2-1.0) Aspartate Amino Transf (AST/SGOT) 17 U/L (15-37) Alanine Aminotransferase (ALT/SGPT) 40 U/L (16-63) Alkaline Phosphatase 64 U/L (46-116) Total Protein 5.7 g/dL (6.4-8.2) Albumin 2.6 g/dL (3.4-5.0) Albumin/Globulin Ratio 0.8 (1.0-1.7) Laboratory Tests Test 12/06/21 14:55 12/06/21 15:53 12/06/21 16:35 12/06/21 18:31 White Blood Count 12.1 x10^3/uL (4.0-11.0) Red Blood Count 2.27 x10^6/uL (4.30-5.70) Hemoglobin 4.5 g/dL (13.0-17.5) Hematocrit 15.9 % (39.0-53.0) Mean Corpuscular Volume 71 fL (79-100) Mean Corpuscular Hemoglobin 20 pg (25-35) Mean Corpuscular Hemoglobin Concent 28 g/dL (31-37) Red Cell Distribution Width 19.6 % (11.5-14.5) Platelet Count 290 x10^3/uL (140-400) Neutrophils (%) (Auto) 89 % (31-73) Lymphocytes (%) (Auto) 4 % (24-48) Monocytes (%) (Auto) 8 % (0-9) Eosinophils (%) (Auto) 0 % (0-3) Basophils (%) (Auto) 0 % (0-3) Neutrophils # (Auto) 10.7 x10^3/uL (1.8-7.7) Lymphocytes # (Auto) 0.4 x10^3/uL (1.0-4.8) Monocytes # (Auto) 0.9 x10^3/uL (0.0-1.1) Eosinophils # (Auto) 0.0 x10^3/uL (0.0-0.7) Basophils # (Auto) 0.0 x10^3/uL (0.0-0.2) Segmented Neutrophils % 91 % (35-66) Band Neutrophils % 5 % (0-9) Lymphocytes % 1 % (24-48) Monocytes % 3 % (0-10) Nucleated Red Blood Cells 2 Platelet Estimate Adequate (ADEQUATE) Polychromasia Mod Hypochromasia Marked Poikilocytosis Mod Basophilic Stippling Present Anisocytosis Slight Microcytosis Mod Spherocytes Occ Tear Drop Cells Occ Ovalocytes Few Stomatocytes Few Schistocytes Occ RBC Morphology Bizarre Forms Few Absolute Reticulocyte Count 0.092 x10^6/uL (0.020-0.120) Percent Reticulocyte Count 4.1 % (0.5-2.3) Immature Reticulocyte Fraction 0.51 (0.20-0.60) Prothrombin Time 13.3 SEC (11.7-14.0) Prothromb Time International Ratio 1.0 (0.8-1.1) Activated Partial Thromboplast Time 26 SEC (24-38) Sodium Level 143 mmol/L (136-145) Potassium Level 5.1 mmol/L (3.5-5.1) Chloride Level 107 mmol/L (98-107) Carbon Dioxide Level 24 mmol/L (21-32) Anion Gap 12 (6-14) Blood Urea Nitrogen 34 mg/dL (8-26) Creatinine 1.4 mg/dL (0.7-1.3) Estimated GFR (Cockcroft-Gault) 51.0 BUN/Creatinine Ratio 24 (6-20) Glucose Level 107 mg/dL (70-99) Calcium Level 8.4 mg/dL (8.5-10.1) Iron Level 7 ug/dL (65-175) Total Iron Binding Capacity 429 ug/dL (250-450) Iron Saturation 2 % (15-34) Total Bilirubin 0.4 mg/dL (0.2-1.0) Aspartate Amino Transf (AST/SGOT) 19 U/L (15-37) Alanine Aminotransferase (ALT/SGPT) 46 U/L (16-63) Alkaline Phosphatase 62 U/L (46-116) Lactate Dehydrogenase 166 U/L (85-227) RW-Bim-B-Type Natriuretic Peptide 2221 pg/mL (0-124) Total Protein 6.4 g/dL (6.4-8.2) Albumin 3.1 g/dL (3.4-5.0) Albumin/Globulin Ratio 0.9 (1.0-1.7) Vitamin B12 Level 971 pg/mL (247-911) Thyroid Stimulating Hormone (TSH) 0.340 uIU/mL (0.358-3.74) Influenza Type A Antigen Negative (NEGATIVE) Influenza Type B Antigen Positive (NEGATIVE) SARS-CoV-2 Antigen (Rapid) Positive (NEGATIVE) Stool Occult Blood Negative (NEG) Glucose (Fingerstick) 98 mg/dL (70-99) Test 12/06/21 20:19 12/07/21 07:40 12/07/21 07:51 Glucose (Fingerstick) 177 mg/dL (70-99) 106 mg/dL (70-99) White Blood Count 11.7 x10^3/uL (4.0-11.0) Red Blood Count 2.93 x10^6/uL (4.30-5.70) Hemoglobin 6.8 g/dL (13.0-17.5) Hematocrit 22.4 % (39.0-53.0) Mean Corpuscular Volume 77 fL (79-100) Mean Corpuscular Hemoglobin 23 pg (25-35) Mean Corpuscular Hemoglobin Concent 30 g/dL (31-37) Red Cell Distribution Width 22.7 % (11.5-14.5) Platelet Count 247 x10^3/uL (140-400) Neutrophils (%) (Auto) 84 % (31-73) Lymphocytes (%) (Auto) 8 % (24-48) Monocytes (%) (Auto) 7 % (0-9) Eosinophils (%) (Auto) 0 % (0-3) Basophils (%) (Auto) 0 % (0-3) Neutrophils # (Auto) 9.8 x10^3/uL (1.8-7.7) Lymphocytes # (Auto) 1.0 x10^3/uL (1.0-4.8) Monocytes # (Auto) 0.9 x10^3/uL (0.0-1.1) Eosinophils # (Auto) 0.0 x10^3/uL (0.0-0.7) Basophils # (Auto) 0.0 x10^3/uL (0.0-0.2) Sodium Level 139 mmol/L (136-145) Potassium Level 4.5 mmol/L (3.5-5.1) Chloride Level 107 mmol/L (98-107) Carbon Dioxide Level 24 mmol/L (21-32) Anion Gap 8 (6-14) Blood Urea Nitrogen 28 mg/dL (8-26) Creatinine 1.2 mg/dL (0.7-1.3) Estimated GFR (Cockcroft-Gault) 61.0 BUN/Creatinine Ratio 23 (6-20) Glucose Level 100 mg/dL (70-99) Calcium Level 7.5 mg/dL (8.5-10.1) Total Bilirubin 0.7 mg/dL (0.2-1.0) Aspartate Amino Transf (AST/SGOT) 17 U/L (15-37) Alanine Aminotransferase (ALT/SGPT) 40 U/L (16-63) Alkaline Phosphatase 64 U/L (46-116) Total Protein 5.7 g/dL (6.4-8.2) Albumin 2.6 g/dL (3.4-5.0) Albumin/Globulin Ratio 0.8 (1.0-1.7) Medications Active Scripts Medications Dose Route/Sig Max Daily Dose Days Date Category Dose Instructions Metformin Hcl Er (Metformin Hcl) 500 Mg Tab.er.24h 500 Mg PO DAILYWBKFT 12/07/21 Reported [prednisone] 10 Tab 10 1X 12/06/21 Reported DOSING: to start 12/07 4 tabs daily X 3 days 3 tabs daily X 3 days 2 tabs daily x 3 days 1 tab daily x 3 days Atorvastatin Calcium 40 Mg Tablet 1 Tab PO QHS 12/06/21 Reported Aleve (Naproxen Sodium) 220 Mg Capsule 220 Mg PO BID PRN 12/06/21 Reported Aspirin 81 Mg Tab.chew 1 Tab PO DAILY 12/06/21 Reported Multi Vitamin Daily (Multivitamin) 1 Each Tablet 1 Tab PO DAILY 30 12/06/21 Reported Duoneb 0.5-3(2.5) Mg/3 Ml (Albuterol/Ipratropium) 3 Ml Ampul.neb 3 Ml NEB Q4HRS PRN 12/06/21 Reported Trelegy Ellipta 200-62.5-25 (Fluticasone/Umeclidin/Vilanter) 1 Each Blst.w.dev 1 Each IH DAILY 12/06/21 Reported Doxycycline Hyclate 100 Mg Capsule 1 Cap PO BID 01/20/21 Rx Prednisone 20 Mg Tablet 1 Tab PO UD 12 01/20/21 Rx Take 2 tabs days 1,2,3 1.5 tabs days 3,4,5 1 tab days 6,7,8 0.5 tab days 9,10,11 Impression . Full consult dictated Acute exacerbation of COPD Pneumonia Anemia See full report TIMOTHY LY MD Dec 07, 2021 10:23
--- NOTE | 2021-12-07 10:44 | NUR ---
This RN notified Dr. Cooley of pt's increase in HR (135-140). Pt asymptomatic, states "I don't feel like my heart is beating fast." Orders from Dr. Cooley to have pt perform valsalva maneuver and a STAT EKG. Valsalva performed by pt without improvement. Dr. Cooley stated he would be by to see pt. Addendum: 12/07/21 at 1152 by JAG HART RN Per Dr. Cooley, orders to hold blood administration until further orders. Addendum: 12/07/21 at 1608 by JAG HART RN Orders received from Dr. Cooley to cancel blood administration.
[2021-12-07] MEDS ORDERED: FUROSEMIDE 20 MG/2 ML VIAL. IVP ONE (11:45)
--- NOTE | 2021-12-07 11:57 | EKG ---
[facility] [address] [place] [address] Test Date: 2021-12-06 Test Time: 16:46:50 Pat Name: JAMMIE HERNANDEZ Department: Room: [facility] Gender: M [employer] Sergeant: : 1955 Requested By: GET TOLEDO Order Number: [id number] Reading MD: Buster Drake Measurements Intervals Orient Rate: 97 P: 114 NE: 168 QRS: 75 QRSD: 76 T: 82 QT: 324 QTc: 415 Interpretive Statements SINUS RHYTHM Electronically Signed On 12-09-2021 14:03:35 SITE INTERPRETER by Buster Drake
--- NOTE | 2021-12-07 12:25 | EKG ---
[facility] [address] [place] [address] Test Date: 2021-12-07 Test Time: 12:21:18 Pat Name: JAMMIE HERNANDEZ Department: Room: 8 Gender: M Editor Publications: BRANDON : 1955 Requested By: BALJINDER GOEL Order Number: [id number] Reading MD: Measurements Intervals Hines Rate: 134 P: 0 OR: 142 QRS: 82 QRSD: 70 T: 47 QT: 272 QTc: 412 Interpretive Statements SINUS TACHYCARDIA OTHERWISE NORMAL ECG RI6.02 Compared to ECG 12/06/2021 16:46:50 Sinus rhythm no longer present
[2021-12-07 13:00] LABS: HEMOGLOBIN 7.3 g/dL (13.0-17.5); RED BLOOD COUNT 3.17 x10^6/uL (4.30-5.70); WHITE BLOOD COUNT 12.9 x10^3/uL (4.0-11.0)
[2021-12-07] MEDS: DOXYCYCLINE HYCLATE 100 MG in IV DEXTROSE 5% 100ML 100 ML IV SCH ×2 (13:13→20:16)
--- NOTE | 2021-12-07 13:22 | NUR ---
SW following. Discussed with RN, pt from home with , room air, ada diet, Flu B and COVID-19 positive. Pulmonology following. Possible blood today. Pt on IV abx. RN advised no SW needs at this time. SW will continue to follow.
--- NOTE | 2021-12-07 19:08 | CONS ---
DATE OF CONSULTATION: 12/07/2021 ATTENDING PHYSICIAN: Dr. Cooley. REASON FOR CONSULTATION: The patient is seen in pulmonary consultation at the request of Dr. Cooley for abnormal x-ray, increasing shortness of breath. HISTORY OF PRESENT ILLNESS: The patient is a 66-year-old with a history of COPD, normally uses bronchodilators at home including a nebulizer machine. He has not had any frequent acute exacerbations of COPD. He presented with increasing shortness of breath. He was evaluated by his PCP, found to have a hemoglobin that was low. He presented, CBC revealed a hemoglobin of 4.5. The patient has been transfused. He has also received iron infusion. His latest hemoglobin is 7.3. Denies any blood loss. He has never had a colonoscopy. He denies hemoptysis. His SARS-CoV-2 rapid test was positive. Imaging studies of chest revealed nodular opacities. He had CT chest, abdomen and pelvis which revealed solid nodular opacities of the right upper lobe, very small effusion, otherwise abdomen revealed no significant findings. PAST MEDICAL HISTORY: Remarkable for tobacco dependent, quit several weeks ago. He has a history of COPD, type 2 diabetes, hyperlipidemia, hypertension. ALLERGIES: No known drug allergies. HOME MEDICATIONS: List was reviewed. CURRENT MEDICATIONS: List was reviewed. REVIEW OF SYSTEMS: As indicated above, otherwise other systems were reviewed and negative. SOCIAL HISTORY: Quit tobacco several weeks ago. PHYSICAL EXAMINATION: GENERAL: The patient appeared to be stated age. VITAL SIGNS: Stable. O2 saturation currently on room air, 96%. HEENT: Eyes: The sclerae were nonicteric. NECK: Jugular venous distention was not elevated. No lymphadenopathy. CHEST: Full expansion. LUNGS: Adequate flow with no wheezes. CARDIOVASCULAR: Regular rate and rhythm with S1, S2, no S3. ABDOMEN: Soft. EXTREMITIES: No clubbing or cyanosis. No pitting edema. NEUROLOGIC: The patient was awake, alert, following commands. A detailed neuro exam was not performed. LABORATORY DATA: Labs were reviewed. SARS rapid test was positive. Influenza B was positive. Electrolytes were noted. BUN was elevated, creatinine was normal. White count was elevated. Hemoglobin and hematocrit were low. IMPRESSION: 1. Abnormal CT chest revealing evidence of nodular infiltrates, suspect residual COVID. 2. Acute chronic blood loss anemia. 3. Leukocytosis. 4. Influenza B being positive. 5. Pneumonia, suspect gram-negative, gram-positive. 6. Type 2 diabetes. 7. Chronic obstructive pulmonary disease. 8. Tobacco dependent, in remission. DISCUSSION: 1. Suspect the patient's dyspnea was related to his low hemoglobin along with underlying COPD and current pneumonia. I think his SARS-CoV-2 testing is an incidental finding. CT chest does not fit the usual COVID-19 viral pneumonia. Recommend continue treatment for bacterial pneumonia. Transfuse. Continue bronchodilators, ceftriaxone and doxycycline. 2. Repeat CT chest in 2-3 months 3. The patient is instructed on the importance of discontinuing tobacco use. 4. Anemia workup per PCP. 5. Noted chest x-ray, cardiac silhouette is enlarged, we will order an echocardiogram. I do appreciate the privilege in sharing in the patient's care. MENDEL DR: Desiree TID: [id number]
[2021-12-07 19:17] LABS: FECAL OB PT NEGATIVE (NEG)
[2021-12-07] MEDS: ATORVASTATIN CALCIUM 40 MG TABLET. PO SCH (20:15)
[2021-12-07] MEDS: OSELTAMIVIR 30 MG CAPSULE PO SCH (20:15)
[2021-12-07] MEDS: LACTOBACILLUS RHAMNOSUS GG 1 CAPSULE. PO SCH (20:16)
[2021-12-08 03:30] VITALS: BP 139/52
[2021-12-08 07:00] VITALS: BP 140/50
--- NOTE | 2021-12-08 07:32 | PDOC ---
PULMONARY PROGRESS NOTES DATE: 12/08/21 TIME: 07:30 Subjective on RA sob better no cough Vitals Vital Signs Date Time Temp Pulse Resp B/P (MAP) Pulse Ox O2 Delivery O2 Flow Rate FiO2 12/08/21 03:30 98.0 69 16 139/52 (81) 95 Room Air 98.0 ROS: No Nausea, No Chest Pain General: Alert, Oriented X4 HEENT: Other (nc at perrl ) Lungs: Crackles Cardiovascular: S1, S2 Abdomen: Soft, Non-tender Neuro Exam: Alert Extremities: No Edema Skin: Warm Labs Laboratory Tests Test 12/06/21 14:55 12/06/21 15:53 12/06/21 16:35 12/06/21 18:31 White Blood Count 12.1 x10^3/uL (4.0-11.0) Red Blood Count 2.27 x10^6/uL (4.30-5.70) Hemoglobin 4.5 g/dL (13.0-17.5) Hematocrit 15.9 % (39.0-53.0) Mean Corpuscular Volume 71 fL (79-100) Mean Corpuscular Hemoglobin 20 pg (25-35) Mean Corpuscular Hemoglobin Concent 28 g/dL (31-37) Red Cell Distribution Width 19.6 % (11.5-14.5) Platelet Count 290 x10^3/uL (140-400) Neutrophils (%) (Auto) 89 % (31-73) Lymphocytes (%) (Auto) 4 % (24-48) Monocytes (%) (Auto) 8 % (0-9) Eosinophils (%) (Auto) 0 % (0-3) Basophils (%) (Auto) 0 % (0-3) Neutrophils # (Auto) 10.7 x10^3/uL (1.8-7.7) Lymphocytes # (Auto) 0.4 x10^3/uL (1.0-4.8) Monocytes # (Auto) 0.9 x10^3/uL (0.0-1.1) Eosinophils # (Auto) 0.0 x10^3/uL (0.0-0.7) Basophils # (Auto) 0.0 x10^3/uL (0.0-0.2) Segmented Neutrophils % 91 % (35-66) Band Neutrophils % 5 % (0-9) Lymphocytes % 1 % (24-48) Monocytes % 3 % (0-10) Nucleated Red Blood Cells 2 Platelet Estimate Adequate (ADEQUATE) Polychromasia Mod Hypochromasia Marked Poikilocytosis Mod Basophilic Stippling Present Anisocytosis Slight Microcytosis Mod Spherocytes Occ Tear Drop Cells Occ Ovalocytes Few Stomatocytes Few Schistocytes Occ RBC Morphology Bizarre Forms Few Absolute Reticulocyte Count 0.092 x10^6/uL (0.020-0.120) Percent Reticulocyte Count 4.1 % (0.5-2.3) Immature Reticulocyte Fraction 0.51 (0.20-0.60) Prothrombin Time 13.3 SEC (11.7-14.0) Prothromb Time International Ratio 1.0 (0.8-1.1) Activated Partial Thromboplast Time 26 SEC (24-38) Sodium Level 143 mmol/L (136-145) Potassium Level 5.1 mmol/L (3.5-5.1) Chloride Level 107 mmol/L (98-107) Carbon Dioxide Level 24 mmol/L (21-32) Anion Gap 12 (6-14) Blood Urea Nitrogen 34 mg/dL (8-26) Creatinine 1.4 mg/dL (0.7-1.3) Estimated GFR (Cockcroft-Gault) 51.0 BUN/Creatinine Ratio 24 (6-20) Glucose Level 107 mg/dL (70-99) Calcium Level 8.4 mg/dL (8.5-10.1) Iron Level 7 ug/dL (65-175) Total Iron Binding Capacity 429 ug/dL (250-450) Iron Saturation 2 % (15-34) Total Bilirubin 0.4 mg/dL (0.2-1.0) Aspartate Amino Transf (AST/SGOT) 19 U/L (15-37) Alanine Aminotransferase (ALT/SGPT) 46 U/L (16-63) Alkaline Phosphatase 62 U/L (46-116) Lactate Dehydrogenase 166 U/L (85-227) JW-Hrv-Q-Type Natriuretic Peptide 2221 pg/mL (0-124) Total Protein 6.4 g/dL (6.4-8.2) Albumin 3.1 g/dL (3.4-5.0) Albumin/Globulin Ratio 0.9 (1.0-1.7) Vitamin B12 Level 971 pg/mL (247-911) Thyroid Stimulating Hormone (TSH) 0.340 uIU/mL (0.358-3.74) Influenza Type A Antigen Negative (NEGATIVE) Influenza Type B Antigen Positive (NEGATIVE) SARS-CoV-2 Antigen (Rapid) Positive (NEGATIVE) Stool Occult Blood Negative (NEG) Glucose (Fingerstick) 98 mg/dL (70-99) Test 12/06/21 20:19 12/07/21 07:40 12/07/21 07:51 12/07/21 11:51 Glucose (Fingerstick) 177 mg/dL (70-99) 106 mg/dL (70-99) 84 mg/dL (70-99) White Blood Count 11.7 x10^3/uL (4.0-11.0) Red Blood Count 2.93 x10^6/uL (4.30-5.70) Hemoglobin 6.8 g/dL (13.0-17.5) Hematocrit 22.4 % (39.0-53.0) Mean Corpuscular Volume 77 fL (79-100) Mean Corpuscular Hemoglobin 23 pg (25-35) Mean Corpuscular Hemoglobin Concent 30 g/dL (31-37) Red Cell Distribution Width 22.7 % (11.5-14.5) Platelet Count 247 x10^3/uL (140-400) Neutrophils (%) (Auto) 84 % (31-73) Lymphocytes (%) (Auto) 8 % (24-48) Monocytes (%) (Auto) 7 % (0-9) Eosinophils (%) (Auto) 0 % (0-3) Basophils (%) (Auto) 0 % (0-3) Neutrophils # (Auto) 9.8 x10^3/uL (1.8-7.7) Lymphocytes # (Auto) 1.0 x10^3/uL (1.0-4.8) Monocytes # (Auto) 0.9 x10^3/uL (0.0-1.1) Eosinophils # (Auto) 0.0 x10^3/uL (0.0-0.7) Basophils # (Auto) 0.0 x10^3/uL (0.0-0.2) Sodium Level 139 mmol/L (136-145) Potassium Level 4.5 mmol/L (3.5-5.1) Chloride Level 107 mmol/L (98-107) Carbon Dioxide Level 24 mmol/L (21-32) Anion Gap 8 (6-14) Blood Urea Nitrogen 28 mg/dL (8-26) Creatinine 1.2 mg/dL (0.7-1.3) Estimated GFR (Cockcroft-Gault) 61.0 BUN/Creatinine Ratio 23 (6-20) Glucose Level 100 mg/dL (70-99) Calcium Level 7.5 mg/dL (8.5-10.1) Total Bilirubin 0.7 mg/dL (0.2-1.0) Aspartate Amino Transf (AST/SGOT) 17 U/L (15-37) Alanine Aminotransferase (ALT/SGPT) 40 U/L (16-63) Alkaline Phosphatase 64 U/L (46-116) Total Protein 5.7 g/dL (6.4-8.2) Albumin 2.6 g/dL (3.4-5.0) Albumin/Globulin Ratio 0.8 (1.0-1.7) Test 12/07/21 12:30 12/07/21 16:37 12/07/21 18:09 12/07/21 19:56 White Blood Count 12.9 x10^3/uL (4.0-11.0) Red Blood Count 3.17 x10^6/uL (4.30-5.70) Hemoglobin 7.3 g/dL (13.0-17.5) Hematocrit 24.0 % (39.0-53.0) Mean Corpuscular Volume 76 fL (79-100) Mean Corpuscular Hemoglobin 23 pg (25-35) Mean Corpuscular Hemoglobin Concent 31 g/dL (31-37) Red Cell Distribution Width 22.0 % (11.5-14.5) Platelet Count 257 x10^3/uL (140-400) Glucose (Fingerstick) 104 mg/dL (70-99) 165 mg/dL (70-99) Stool Occult Blood Negative (NEG) Laboratory Tests Test 12/07/21 07:40 12/07/21 07:51 12/07/21 11:51 12/07/21 12:30 White Blood Count 11.7 x10^3/uL (4.0-11.0) 12.9 x10^3/uL (4.0-11.0) Red Blood Count 2.93 x10^6/uL (4.30-5.70) 3.17 x10^6/uL (4.30-5.70) Hemoglobin 6.8 g/dL (13.0-17.5) 7.3 g/dL (13.0-17.5) Hematocrit 22.4 % (39.0-53.0) 24.0 % (39.0-53.0) Mean Corpuscular Volume 77 fL (79-100) 76 fL (79-100) Mean Corpuscular Hemoglobin 23 pg (25-35) 23 pg (25-35) Mean Corpuscular Hemoglobin Concent 30 g/dL (31-37) 31 g/dL (31-37) Red Cell Distribution Width 22.7 % (11.5-14.5) 22.0 % (11.5-14.5) Platelet Count 247 x10^3/uL (140-400) 257 x10^3/uL (140-400) Neutrophils (%) (Auto) 84 % (31-73) Lymphocytes (%) (Auto) 8 % (24-48) Monocytes (%) (Auto) 7 % (0-9) Eosinophils (%) (Auto) 0 % (0-3) Basophils (%) (Auto) 0 % (0-3) Neutrophils # (Auto) 9.8 x10^3/uL (1.8-7.7) Lymphocytes # (Auto) 1.0 x10^3/uL (1.0-4.8) Monocytes # (Auto) 0.9 x10^3/uL (0.0-1.1) Eosinophils # (Auto) 0.0 x10^3/uL (0.0-0.7) Basophils # (Auto) 0.0 x10^3/uL (0.0-0.2) Sodium Level 139 mmol/L (136-145) Potassium Level 4.5 mmol/L (3.5-5.1) Chloride Level 107 mmol/L (98-107) Carbon Dioxide Level 24 mmol/L (21-32) Anion Gap 8 (6-14) Blood Urea Nitrogen 28 mg/dL (8-26) Creatinine 1.2 mg/dL (0.7-1.3) Estimated GFR (Cockcroft-Gault) 61.0 BUN/Creatinine Ratio 23 (6-20) Glucose Level 100 mg/dL (70-99) Calcium Level 7.5 mg/dL (8.5-10.1) Total Bilirubin 0.7 mg/dL (0.2-1.0) Aspartate Amino Transf (AST/SGOT) 17 U/L (15-37) Alanine Aminotransferase (ALT/SGPT) 40 U/L (16-63) Alkaline Phosphatase 64 U/L (46-116) Total Protein 5.7 g/dL (6.4-8.2) Albumin 2.6 g/dL (3.4-5.0) Albumin/Globulin Ratio 0.8 (1.0-1.7) Glucose (Fingerstick) 106 mg/dL (70-99) 84 mg/dL (70-99) Test 12/07/21 16:37 12/07/21 18:09 12/07/21 19:56 Glucose (Fingerstick) 104 mg/dL (70-99) 165 mg/dL (70-99) Stool Occult Blood Negative (NEG) Medications Active Scripts Medications Dose Route/Sig Max Daily Dose Days Date Category Dose Instructions Metformin Hcl Er (Metformin Hcl) 500 Mg Tab.er.24h 500 Mg PO [id number] 12/07/21 Reported [prednisone] 10 Tab 10 1X 12/06/21 Reported DOSING: to start 12/07 4 tabs daily X 3 days 3 tabs daily X 3 days 2 tabs daily x 3 days 1 tab daily x 3 days Atorvastatin Calcium 40 Mg Tablet 1 Tab PO QHS 12/06/21 Reported Aleve (Naproxen Sodium) 220 Mg Capsule 220 Mg PO BID PRN 12/06/21 Reported Aspirin 81 Mg Tab.chew 1 Tab PO DAILY 12/06/21 Reported Multi Vitamin Daily (Multivitamin) 1 Each Tablet 1 Tab PO DAILY 30 12/06/21 Reported Duoneb 0.5-3(2.5) Mg/3 Ml (Albuterol/Ipratropium) 3 Ml Ampul.neb 3 Ml NEB Q4HRS PRN 12/06/21 Reported Trelegy Ellipta 200-62.5-25 (Fluticasone/Umeclidin/Vilanter) 1 Each Blst.w.dev 1 Each IH DAILY 12/06/21 Reported Doxycycline Hyclate 100 Mg Capsule 1 Cap PO BID 01/20/21 Rx Prednisone 20 Mg Tablet 1 Tab PO UD 12 01/20/21 Rx Take 2 tabs days 1,2,3 1.5 tabs days 3,4,5 1 tab days 6,7,8 0.5 tab days 9,10,[address] of chest reviewed 1. Solid nodular pulmonary opacities of the right upper lobe measuring up to 2.3 cm in size and groundglass opacities, most likely bronchopneumonia. Follow-up CT imaging in 3 months is advised to document this resolves to exclude the possibility of malignant nodules. 2. Very small pleural effusions. Impression . IMPRESSION: 1. Abnormal CT chest revealing evidence of nodular infiltrates, suspect residual COVID. 2. Acute chronic blood loss anemia. 3. Leukocytosis. 4. Influenza B being positive. 5. Pneumonia, suspect gram-negative, gram-positive. 6. Type 2 diabetes. 7. Chronic obstructive pulmonary disease. 8. Tobacco dependent, in remission. Plan . DISCUSSION: 1. Suspect the patient's dyspnea was related to his low hemoglobin along with underlying COPD and current pneumonia. I think his SARS-CoV-2 testing is an incidental finding. CT chest does not fit the usual COVID-19 viral pneumonia. Recommend continue treatment for bacterial pneumonia. Transfuse. Continue bronchodilators, ceftriaxone and doxycycline. 2. Repeat CT chest in 2-3 months 3. The patient is instructed on the importance of discontinuing tobacco use. advised to quit smoking for ever 4. Anemia workup per PCP. 5. Noted chest x-ray, cardiac silhouette is enlarged, we will order an echocardiogram. 6. 02 titration 7. tamiflu 8. no steroid discussed w pt ERIKA Morales MD Dec 08, 2021 07:32
[2021-12-08] MEDS: INSULIN LISPRO 300 UNITS/3 ML VIAL. SQ SCH ×3 (08:00→17:00)
[2021-12-08] MEDS: IPRATROPIUM/ALBUTEROL 20/100mcg/INH INHALER. INH SCH ×4 (08:19→20:21)
[2021-12-08] MEDS: FLUTICASONE/VILANTEROL 200/25 INHALER. INH SCH (08:19)
[2021-12-08] MEDS: ASCORBIC ACID 500 MG TABLET PO SCH (08:20)
[2021-12-08] MEDS: THIAMINE 100 MG TABLET. PO SCH (08:20)
[2021-12-08] MEDS: OSELTAMIVIR 30 MG CAPSULE PO SCH ×2 (08:20→20:24)
[2021-12-08] MEDS: ASPIRIN CHEWABLE 81 MG TABLET. PO SCH (08:20)
[2021-12-08] MEDS: LACTOBACILLUS RHAMNOSUS GG 1 CAPSULE. PO SCH ×2 (08:21→20:24)
[2021-12-08] MEDS: ZINC SULFATE 220 MG CAPSULE. PO SCH (08:21)
[2021-12-08] MEDS: DOXYCYCLINE HYCLATE 100 MG in IV DEXTROSE 5% 100ML 100 ML IV SCH (08:23)
--- NOTE | 2021-12-08 10:02 | PDOC ---
[facility] PROGRESS NOTE Date of Service DOS: DATE: 12/08/21 TIME: 09:54 Chief Complaint Chief Complaint Shortness of breath - multifactorial, clearly symptomatic acute anemia. Maybe flu B and Covid 19 and post obstructive right upper lobe bacterial pneumonia play a role Acute anemia - will check reticulocytes, iron, likely GI losses. Will repeat fecal occult. Transfused 2u PRBC for severity of acute anemia Pneumonia - likely gram negative given structural lung disease, long smoking history. Will consult pulm given possible need for follow CT outpatient and obstructive possibility Influenza B - patient wishes for tamiflu treatment, advised likely this will not alter the course COVID 19 - not hypoxia, no clear role for treatment other than supportive care. Paxolovid and Sotrovimab are only indicated for outpatient treatment. COPD - cont outpatient inhalers, not clearly in acute exacerbation. I don't see an immediate indication for further steroids Diabetes-Type II - sliding scale insulin High Cholesterol - home statin Hypertension - home antihypertensives Smoker - just quit within 5 weeks CARYL - likely on some mild CKD - likely vasomotor nephropathy, monitor renal function Leukocytosis - steroid vs sepsis related. Treating sepsis with fluids, antibiotics, monitor CBC FEN - ADA diet PPX - SCDs FULL CODE Dispo - inpatient History of Present Illness History of Present Illness Mr Irby is a 66 yo male with PMHx COPD, DM2, HLD, HTN who presents to ED accompanied by his for further assessment of outpatient Hb 4.5 noted by his primary care physician. He also complains of progressive shortness of breath has been worsening over the past 3 weeks. He quit smoking 5 weeks ago and initially felt he was having a COPD exacerbation and was changed from a Wixela inhaler to Trelegy inhaler. He is finished 2 rounds of doxycycline and steroids over the past 3 weeks and was about to start another dose of steroids on 12/07/2021 when above lab findings were discovered. He has been feeling progressively more weak over the past week as well. He has not noted any blood in his stool and has never had a colonoscopy but he has had outpatient Hemoccults though previously been negative. No chest pain no abdominal pain no nausea vomiting diarrhea. No urinary complaints. No changes in his blood sugar. He is up-to-date with COVID-19 vaccinations including booster has been vaccinated against influenza. Labs with WBC 12.1, Hb 4.5 with MCV 71, platelets 290, INR 1, PT T 26, NA 143, K5.1, BUN 34, CR 1.4, glucose 107, calcium 8.4, bilirubin 0.4, AST 19, ALT 46, alkaline phosphatase 62, LDH 166, albumin 3.1, NT proBNP is 2221, ED fecal occult was negative however her ED staff notes there is actually no stool in the sample, rapid COVID-19 was positive and rapid influenza B+. Chest radiograph concerning for nodular opacities in the right upper lung. CT chest abdomen pelvis with no opacity in the right upper lobe lower lobe 2.3 cm with groundglass opacities concerning for bronchopneumonia. L3 bony abnormality nonspecific. Admitted for further care. 12/07: Hb 6.8. Feels the shortness of breath is improved minimal cough. Blood sugar in the mid 100s. Feeling weak but overall a little better. 12/08: Hb 7.3. Received iron. Repeat fecal occult negative. Feeling improved overall. He is coughing up some yellow sputum no with use of the flutter valve. He is a little stronger. Awaiting echocardiogram read and hematology evaluation. Vitals/I&O Vitals/I&O: Vital Signs Date Time Temp Pulse Resp B/P (MAP) Pulse Ox O2 Delivery O2 Flow Rate FiO2 12/08/21 08:21 69 139/52 12/08/21 07:00 98.4 16 95 Room Air 98.4 I & O 0 12/07/21 12/07/21 12/08/21 15:00 23:00 07:00 Intake Total 510 ml 600 ml 310 ml Output Total 1000 ml 1300 ml Balance 510 ml -400 ml -990 ml Physical Exam General: Alert, Oriented X3, Cooperative, moderate distress Abdomen: Normal bowel sounds, Soft, No tenderness, No hepatosplenomegaly, No masses Extremities: No clubbing, No cyanosis, No edema, Normal pulses, No tenderness/swelling Skin: No rashes, No breakdown, No significant lesion Labs Labs: Laboratory Tests Test 12/07/21 11:51 12/07/21 12:30 12/07/21 16:37 12/07/21 18:09 Glucose (Fingerstick) 84 mg/dL (70-99) 104 mg/dL (70-99) White Blood Count 12.9 x10^3/uL (4.0-11.0) Red Blood Count 3.17 x10^6/uL (4.30-5.70) Hemoglobin 7.3 g/dL (13.0-17.5) Hematocrit 24.0 % (39.0-53.0) Mean Corpuscular Volume 76 fL (79-100) Mean Corpuscular Hemoglobin 23 pg (25-35) Mean Corpuscular Hemoglobin Concent 31 g/dL (31-37) Red Cell Distribution Width 22.0 % (11.5-14.5) Platelet Count 257 x10^3/uL (140-400) Stool Occult Blood Negative (NEG) Test 12/07/21 19:56 12/08/21 07:47 Glucose (Fingerstick) 165 mg/dL (70-99) 98 mg/dL (70-99) Assessment and Plan Assessmemt and Plan Problems Medical Problems: (1) COVID-19 Status: Acute (2) Influenza B Status: Acute (3) Low hemoglobin Status: Acute (4) Pneumonia Status: Acute Comment Review of Relevant I have reviewed the following items teodora (where applicable) has been applied. Medications: Current Medications Medications (Trade) Dose Ordered Sig/Dimitrios Route PRN Reason Start Time Stop Time Status Last Admin Dose Admin Lactobacillus Rhamnosus (Culturelle) 1 cap BID PO 12/07/21 21:00 12/08/21 08:21 Furosemide (Lasix) 20 mg 1X ONCE IVP 12/07/21 11:45 12/07/21 11:46 DC 12/07/21 13:13 Justifications for Admission Other Justification BALJINDER GOEL MD Dec 08, 2021 10:02
[2021-12-08] MEDS: cefTRIAXone IV Push 1 GM VIAL. IVP SCH (10:07)
[2021-12-08 10:50] VITALS: BP 145/48
--- NOTE | 2021-12-08 14:22 | PDOC2 ---
CONSULT Date of Consult Date of Consult DATE: 12/08/21 TIME: 14:22 Reason for Consult Reason for Consult: Tachycardia Referring Physician Referring Physician: Dr. Mendoza Identification/Chief Complaint Chief Complaint Shortness of breath Source Source: Chart review, Patient History of Present Illness Reason for Visit: 66-year-old male without any previous cardiac history presented with progressive shortness of breath since last 2 to 3 weeks and was noted to have severe anemia with hemoglobin of 4.5. He received blood transfusions with improvement in symptoms. He had sinus tachycardia yesterday prompting cardiology consultation. Patient denied any chest pain, orthopnea/PND, palpitations or syncope. Past Medical History Cardiovascular: HTN, Hyperlipidemia Endocrine: Diabetes Family History Family History: Diabetes, High Cholestrol, Hypertension Social History Quit (10/2021) ALCOHOL: rare Drugs: None Current Problem List Problem List Problems Medical Problems: (1) COVID-19 Status: Acute (2) Influenza B Status: Acute (3) Low hemoglobin Status: Acute (4) Pneumonia Status: Acute Current Medications Current Medications Current Medications Acetaminophen (Tylenol) 650 mg 1X PRN PRN PO PRE-TRANSFUSION; Start 12/06/21 at 15:15; Stop 12/07/21 at 15:14; Status DC Diphenhydramine HCl (Benadryl Oral Elixir) 12.5 mg 1X PRN PRN PO PRE- TRANSFUSION; Start 12/06/21 at 15:15; Stop 12/07/21 at 15:14; Status DC Diphenhydramine HCl (Benadryl) 25 mg PRN 1X PRN PO PRE-TRANSFUSION; Start 12/06/21 at 15:15; Stop 12/07/21 at 15:14; Status DC Iohexol (Omnipaque 300 Mg/ml) 60 ml 1X ONCE IV Last administered on 12/06/21at 15:55; Start 12/06/21 at 15:45; Stop 12/06/21 at 15:46; Status DC Info (CONTRAST GIVEN -- Rx MONITORING) 1 each PRN DAILY PRN MC SEE COMMENTS; Start 12/06/21 at 15:45; Stop 12/08/21 at 15:44 Ceftriaxone Sodium (Rocephin) 1 gm DAILY IVP Last administered on 12/08/21at 10:07; Start 12/06/21 at 17:00; Stop 12/12/21 at 09:01 Insulin Human Lispro (HumaLOG) 0-9 UNITS TIDWMEALS SQ ; Start 12/06/21 at 17:00 Dextrose (Dextrose 50%-Water Syringe) 12.5 gm PRN Q15MIN PRN IV SEE COMMENTS; Start 12/06/21 at 17:00 Dextrose (Iv Dextrose 5%) 250 ml PRN Q15MIN PRN IV SEE COMMENTS; Start 12/06/21 at 17:00 Ondansetron HCl (Zofran) 4 mg PRN Q4HRS PRN IVP NAUSEA/VOMITING; Start 12/06/21 at 17:00 Acetaminophen (Tylenol) 650 mg PRN Q6HRS PRN PO MILD PAIN / TEMP > 100.3'F; Start 12/06/21 at 17:00 Fentanyl Citrate (Fentanyl 2ml Vial) 25 mcg PRN Q3HRS PRN IVP SEVERE PAIN 7-10; Start 12/06/21 at 17:00 Guaifenesin (Robitussin Dm) 10 ml PRN Q6HRS PRN PO COUGH; Start 12/06/21 at 17:00 Tramadol HCl (Ultram) 50 mg PRN Q6HRS PRN PO MODERATE-SEVERE PAIN; Start 12/06/21 at 17:00 Oseltamivir Phosphate (Tamiflu) 30 mg BID PO Last administered on 12/08/21at 08:20; Start 12/06/21 at 18:00; Stop 12/11/21 at 17:59 Fluticasone/ Vilanterol (Breo Ellipta 200-25 Mcg) 1 puff DAILY INH Last administered on 12/08/21at 08:19; Start 12/07/21 at 09:00 Albuterol/ Ipratropium (Combivent Respimat 20-100 Mcg) 1 puff RTQID INH Last administered on 12/08/21at 12:16; Start 12/06/21 at 20:00 Albuterol Sulfate (Ventolin Hfa) 1 puff PRN Q4HRS PRN INH SOA; Start 12/06/21 at 19:30 Doxycycline Hyclate 100 mg/ Dextrose 100 ml @ 50 mls/hr Q12HR IV Last administered on 12/08/21at 08:23; Start 12/06/21 at 21:00; Stop 12/08/21 at 11:44; Status DC Zinc Sulfate (Orazinc) 220 mg DAILY PO Last administered on 12/08/21at 08:21; Start 12/06/21 at 21:00 Thiamine Mononitrate (Vitamin B-1) 100 mg DAILY PO Last administered on 12/08/21at 08:20; Start 12/06/21 at 21:00 Ascorbic Acid (Vitamin C) 500 mg DAILY PO Last administered on 12/08/21at 08:20; Start 12/06/21 at 21:00 Atorvastatin Calcium (Lipitor) 40 mg QHS PO Last administered on 12/07/21at 20:15; Start 12/06/21 at 21:00 Amlodipine Besylate (Norvasc) 10 mg DAILY PO Last administered on 12/08/21at 08:21; Start 12/07/21 at 09:00 Iron Sucrose 400 mg/Sodium Chloride 270 ml @ 90 mls/hr 1X ONCE IV Last administered on 12/07/21at 09:57; Start 12/07/21 at 08:00; Stop 12/07/21 at 10:59; Status DC Aspirin (Aspirin Chewable) 81 mg DAILY PO Last administered on 12/08/21at 08:20; Start 12/07/21 at 09:00 Lactobacillus Rhamnosus (Culturelle) 1 cap BID PO Last administered on 12/08/21at 08:21; Start 12/07/21 at 21:00 Furosemide (Lasix) 20 mg 1X ONCE IVP Last administered on 12/07/21at 13:13; Start 12/07/21 at 11:45; Stop 12/07/21 at 11:46; Status DC Doxycycline Hyclate (Vibra-Tab) 100 mg BID PO ; Start 12/08/21 at 21:00; Stop 12/13/21 at 09:01 Active Scripts Active Doxycycline Hyclate 100 Mg Capsule 1 Cap PO BID Prednisone 20 Mg Tablet 1 Tab PO UD 12 Days Take 2 tabs days 1,2,3 1.5 tabs days 3,4,5 1 tab days 6,7,8 0.5 tab days 9,10,11 Reported Metformin Hcl Er (Metformin Hcl) 500 Mg Tab.er.24h 500 Mg PO DAILYWBKFT [prednisone] 10 Tab 10 1X DOSING: to start 12/07 4 tabs daily X 3 days 3 tabs daily X 3 days 2 tabs daily x 3 days 1 tab daily x 3 days Atorvastatin Calcium 40 Mg Tablet 1 Tab PO QHS Aleve (Naproxen Sodium) 220 Mg Capsule 220 Mg PO BID PRN Aspirin 81 Mg Tab.chew 1 Tab PO DAILY Multi Vitamin Daily (Multivitamin) 1 Each Tablet 1 Tab PO DAILY 30 Days Duoneb 0.5-3(2.5) Mg/3 Ml (Albuterol/Ipratropium) 3 Ml Ampul.neb 3 Ml NEB Q4HRS PRN Trelegy Ellipta 200-62.5-25 (Fluticasone/Umeclidin/Vilanter) 1 Each Blst.w.dev 1 Each IH DAILY Allergies Allergies: Coded Allergies: No Known Medication Allergies (Verified Allergy, Unknown, 10/27/19) NO KNOWN DRUG/MEDICATION OR LATEX ALLERGIES ROS PSYCHOLOGICAL ROS: No: Hallucinations Eyes: No Loss of vision HEENT: No: Epistaxis Respiratory: YES: Shortness of breath; No: Hemoptysis Cardiovascular: No Chest Pain Gastrointestinal: No Vomiting Genitourinary: No Hematuria Neurological: No Seizures Skin: No Rash Physical Exam General: Alert, No acute distress HEENT: Atraumatic Lungs: Clear to auscultation Heart: Regular rate Abdomen: Soft Extremities: No edema Neuro: Normal speech Psych/Mental Status: Mood NL Vitals VITALS Vital Signs Date Time Temp Pulse Resp B/P (MAP) Pulse Ox O2 Delivery O2 Flow Rate FiO2 12/08/21 10:50 97.9 72 16 145/48 (80) 95 Room Air 97.9 Labs Labs Laboratory Tests Test 12/06/21 14:55 12/06/21 15:53 12/06/21 16:35 12/06/21 18:31 White Blood Count 12.1 x10^3/uL (4.0-11.0) Red Blood Count 2.27 x10^6/uL (4.30-5.70) Hemoglobin 4.5 g/dL (13.0-17.5) Hematocrit 15.9 % (39.0-53.0) Mean Corpuscular Volume 71 fL (79-100) Mean Corpuscular Hemoglobin 20 pg (25-35) Mean Corpuscular Hemoglobin Concent 28 g/dL (31-37) Red Cell Distribution Width 19.6 % (11.5-14.5) Platelet Count 290 x10^3/uL (140-400) Neutrophils (%) (Auto) 89 % (31-73) Lymphocytes (%) (Auto) 4 % (24-48) Monocytes (%) (Auto) 8 % (0-9) Eosinophils (%) (Auto) 0 % (0-3) Basophils (%) (Auto) 0 % (0-3) Neutrophils # (Auto) 10.7 x10^3/uL (1.8-7.7) Lymphocytes # (Auto) 0.4 x10^3/uL (1.0-4.8) Monocytes # (Auto) 0.9 x10^3/uL (0.0-1.1) Eosinophils # (Auto) 0.0 x10^3/uL (0.0-0.7) Basophils # (Auto) 0.0 x10^3/uL (0.0-0.2) Segmented Neutrophils % 91 % (35-66) Band Neutrophils % 5 % (0-9) Lymphocytes % 1 % (24-48) Monocytes % 3 % (0-10) Nucleated Red Blood Cells 2 Platelet Estimate Adequate (ADEQUATE) Polychromasia Mod Hypochromasia Marked Poikilocytosis Mod Basophilic Stippling Present Anisocytosis Slight Microcytosis Mod Spherocytes Occ Tear Drop Cells Occ Ovalocytes Few Stomatocytes Few Schistocytes Occ RBC Morphology Bizarre Forms Few Absolute Reticulocyte Count 0.092 x10^6/uL (0.020-0.120) Percent Reticulocyte Count 4.1 % (0.5-2.3) Immature Reticulocyte Fraction 0.51 (0.20-0.60) Prothrombin Time 13.3 SEC (11.7-14.0) Prothromb Time International Ratio 1.0 (0.8-1.1) Activated Partial Thromboplast Time 26 SEC (24-38) Sodium Level 143 mmol/L (136-145) Potassium Level 5.1 mmol/L (3.5-5.1) Chloride Level 107 mmol/L (98-107) Carbon Dioxide Level 24 mmol/L (21-32) Anion Gap 12 (6-14) Blood Urea Nitrogen 34 mg/dL (8-26) Creatinine 1.4 mg/dL (0.7-1.3) Estimated GFR (Cockcroft-Gault) 51.0 BUN/Creatinine Ratio 24 (6-20) Glucose Level 107 mg/dL (70-99) Calcium Level 8.4 mg/dL (8.5-10.1) Iron Level 7 ug/dL (65-175) Total Iron Binding Capacity 429 ug/dL (250-450) Iron Saturation 2 % (15-34) Total Bilirubin 0.4 mg/dL (0.2-1.0) Aspartate Amino Transf (AST/SGOT) 19 U/L (15-37) Alanine Aminotransferase (ALT/SGPT) 46 U/L (16-63) Alkaline Phosphatase 62 U/L (46-116) Lactate Dehydrogenase 166 U/L (85-227) TN-Kaw-X-Type Natriuretic Peptide 2221 pg/mL (0-124) Total Protein 6.4 g/dL (6.4-8.2) Albumin 3.1 g/dL (3.4-5.0) Albumin/Globulin Ratio 0.9 (1.0-1.7) Vitamin B12 Level 971 pg/mL (247-911) Thyroid Stimulating Hormone (TSH) 0.340 uIU/mL (0.358-3.74) Influenza Type A Antigen Negative (NEGATIVE) Influenza Type B Antigen Positive (NEGATIVE) SARS-CoV-2 Antigen (Rapid) Positive (NEGATIVE) Stool Occult Blood Negative (NEG) Glucose (Fingerstick) 98 mg/dL (70-99) Test 12/06/21 20:19 12/07/21 07:40 12/07/21 07:51 12/07/21 11:51 Glucose (Fingerstick) 177 mg/dL (70-99) 106 mg/dL (70-99) 84 mg/dL (70-99) White Blood Count 11.7 x10^3/uL (4.0-11.0) Red Blood Count 2.93 x10^6/uL (4.30-5.70) Hemoglobin 6.8 g/dL (13.0-17.5) Hematocrit 22.4 % (39.0-53.0) Mean Corpuscular Volume 77 fL (79-100) Mean Corpuscular Hemoglobin 23 pg (25-35) Mean Corpuscular Hemoglobin Concent 30 g/dL (31-37) Red Cell Distribution Width 22.7 % (11.5-14.5) Platelet Count 247 x10^3/uL (140-400) Neutrophils (%) (Auto) 84 % (31-73) Lymphocytes (%) (Auto) 8 % (24-48) Monocytes (%) (Auto) 7 % (0-9) Eosinophils (%) (Auto) 0 % (0-3) Basophils (%) (Auto) 0 % (0-3) Neutrophils # (Auto) 9.8 x10^3/uL (1.8-7.7) Lymphocytes # (Auto) 1.0 x10^3/uL (1.0-4.8) Monocytes # (Auto) 0.9 x10^3/uL (0.0-1.1) Eosinophils # (Auto) 0.0 x10^3/uL (0.0-0.7) Basophils # (Auto) 0.0 x10^3/uL (0.0-0.2) Sodium Level 139 mmol/L (136-145) Potassium Level 4.5 mmol/L (3.5-5.1) Chloride Level 107 mmol/L (98-107) Carbon Dioxide Level 24 mmol/L (21-32) Anion Gap 8 (6-14) Blood Urea Nitrogen 28 mg/dL (8-26) Creatinine 1.2 mg/dL (0.7-1.3) Estimated GFR (Cockcroft-Gault) 61.0 BUN/Creatinine Ratio 23 (6-20) Glucose Level 100 mg/dL (70-99) Calcium Level 7.5 mg/dL (8.5-10.1) Total Bilirubin 0.7 mg/dL (0.2-1.0) Aspartate Amino Transf (AST/SGOT) 17 U/L (15-37) Alanine Aminotransferase (ALT/SGPT) 40 U/L (16-63) Alkaline Phosphatase 64 U/L (46-116) Total Protein 5.7 g/dL (6.4-8.2) Albumin 2.6 g/dL (3.4-5.0) Albumin/Globulin Ratio 0.8 (1.0-1.7) Test 12/07/21 12:30 12/07/21 16:37 12/07/21 18:09 12/07/21 19:56 White Blood Count 12.9 x10^3/uL (4.0-11.0) Red Blood Count 3.17 x10^6/uL (4.30-5.70) Hemoglobin 7.3 g/dL (13.0-17.5) Hematocrit 24.0 % (39.0-53.0) Mean Corpuscular Volume 76 fL (79-100) Mean Corpuscular Hemoglobin 23 pg (25-35) Mean Corpuscular Hemoglobin Concent 31 g/dL (31-37) Red Cell Distribution Width 22.0 % (11.5-14.5) Platelet Count 257 x10^3/uL (140-400) Glucose (Fingerstick) 104 mg/dL (70-99) 165 mg/dL (70-99) Stool Occult Blood Negative (NEG) Test 12/08/21 07:47 12/08/21 11:41 Glucose (Fingerstick) 98 mg/dL (70-99) 106 mg/dL (70-99) Laboratory Tests Test 12/07/21 16:37 12/07/21 18:09 12/07/21 19:56 12/08/21 07:47 Glucose (Fingerstick) 104 mg/dL (70-99) 165 mg/dL (70-99) 98 mg/dL (70-99) Stool Occult Blood Negative (NEG) Test 12/08/21 11:41 Glucose (Fingerstick) 106 mg/dL (70-99) Assessment/Plan Assessment/Plan 1. Sinus tachycardia: Most probably related to anemia. This has currently resolved. 2D echo showed normal LV systolic function. 2. Shortness of breath, multifactorial secondary to anemia, COPD and postobstructive pneumonia. Pulmonary team following. 3. Severe anemia s/p blood transfusion. Continue current work-up 4. Hypertension: Controlled 5. Hyperlipidemia: Statin therapy 6. DM2: Continue treatment per IM 7. Acute kidney injury: Continue intravenous fluids Thank you for your consultation MOHINDER CLARK MD Dec 08, 2021 14:22
[2021-12-08 15:00] VITALS: BP 133/46
[2021-12-08 19:00] VITALS: BP 136/58
[2021-12-08] MEDS: DOXYCYCLINE HYCLATE 100 MG TABLET PO SCH (20:24)
[2021-12-08] MEDS: ATORVASTATIN CALCIUM 40 MG TABLET. PO SCH (20:24)
[2021-12-08 22:33] VITALS: BP 137/42
[2021-12-09 02:39] VITALS: BP 136/44
[2021-12-09 07:00] VITALS: BP 135/47
[2021-12-09 07:18] LABS: BASO % 0 % (0-3); EOS # 0.2 x10^3/uL (0.0-0.7); EOS % 2 % (0-3); HEMOGLOBIN 7.8 g/dL (13.0-17.5); LYMPH % 11 % (24-48); MEAN CORPUSCULAR HEMOGLOBIN 23 pg (25-35); MEAN CORPUSCULAR HGB CONC 30 g/dL (31-37); MEAN CORPUSCULAR VOLUME 77 fL (79-100); MONO # 0.8 x10^3/uL (0.0-1.1); MONO % 9 % (0-9); NEUT # 7.3 x10^3/uL (1.8-7.7); NEUT % 79 % (31-73); PLATELET COUNT 262 x10^3/uL (140-400); RED BLOOD COUNT 3.36 x10^6/uL (4.30-5.70); RED CELL DISTRIBUTION WIDTH 22.6 % (11.5-14.5); WHITE BLOOD COUNT 9.3 x10^3/uL (4.0-11.0)
--- NOTE | 2021-12-09 07:24 | PDOC ---
PULMONARY PROGRESS NOTES DATE: 12/09/21 TIME: 07:23 Subjective on RA sob better has cough Vitals Vital Signs Date Time Temp Pulse Resp B/P (MAP) Pulse Ox O2 Delivery O2 Flow Rate FiO2 12/09/21 02:39 97.7 76 17 136/44 (74) 93 Room Air 97.7 ROS: No Nausea, No Chest Pain General: Alert, Oriented X4 HEENT: Other (nc at perrl ) Lungs: Crackles Cardiovascular: S1, S2 Abdomen: Soft, Non-tender Neuro Exam: Alert Extremities: No Edema Skin: Warm Labs Laboratory Tests Test 12/07/21 07:40 12/07/21 07:51 12/07/21 11:51 12/07/21 12:30 White Blood Count 11.7 x10^3/uL (4.0-11.0) 12.9 x10^3/uL (4.0-11.0) Red Blood Count 2.93 x10^6/uL (4.30-5.70) 3.17 x10^6/uL (4.30-5.70) Hemoglobin 6.8 g/dL (13.0-17.5) 7.3 g/dL (13.0-17.5) Hematocrit 22.4 % (39.0-53.0) 24.0 % (39.0-53.0) Mean Corpuscular Volume 77 fL (79-100) 76 fL (79-100) Mean Corpuscular Hemoglobin 23 pg (25-35) 23 pg (25-35) Mean Corpuscular Hemoglobin Concent 30 g/dL (31-37) 31 g/dL (31-37) Red Cell Distribution Width 22.7 % (11.5-14.5) 22.0 % (11.5-14.5) Platelet Count 247 x10^3/uL (140-400) 257 x10^3/uL (140-400) Neutrophils (%) (Auto) 84 % (31-73) Lymphocytes (%) (Auto) 8 % (24-48) Monocytes (%) (Auto) 7 % (0-9) Eosinophils (%) (Auto) 0 % (0-3) Basophils (%) (Auto) 0 % (0-3) Neutrophils # (Auto) 9.8 x10^3/uL (1.8-7.7) Lymphocytes # (Auto) 1.0 x10^3/uL (1.0-4.8) Monocytes # (Auto) 0.9 x10^3/uL (0.0-1.1) Eosinophils # (Auto) 0.0 x10^3/uL (0.0-0.7) Basophils # (Auto) 0.0 x10^3/uL (0.0-0.2) Sodium Level 139 mmol/L (136-145) Potassium Level 4.5 mmol/L (3.5-5.1) Chloride Level 107 mmol/L (98-107) Carbon Dioxide Level 24 mmol/L (21-32) Anion Gap 8 (6-14) Blood Urea Nitrogen 28 mg/dL (8-26) Creatinine 1.2 mg/dL (0.7-1.3) Estimated GFR (Cockcroft-Gault) 61.0 BUN/Creatinine Ratio 23 (6-20) Glucose Level 100 mg/dL (70-99) Calcium Level 7.5 mg/dL (8.5-10.1) Total Bilirubin 0.7 mg/dL (0.2-1.0) Aspartate Amino Transf (AST/SGOT) 17 U/L (15-37) Alanine Aminotransferase (ALT/SGPT) 40 U/L (16-63) Alkaline Phosphatase 64 U/L (46-116) Total Protein 5.7 g/dL (6.4-8.2) Albumin 2.6 g/dL (3.4-5.0) Albumin/Globulin Ratio 0.8 (1.0-1.7) Glucose (Fingerstick) 106 mg/dL (70-99) 84 mg/dL (70-99) Test 12/07/21 16:37 12/07/21 18:09 12/07/21 19:56 12/08/21 07:47 Glucose (Fingerstick) 104 mg/dL (70-99) 165 mg/dL (70-99) 98 mg/dL (70-99) Stool Occult Blood Negative (NEG) Test 12/08/21 11:41 12/08/21 16:40 12/08/21 18:34 Glucose (Fingerstick) 106 mg/dL (70-99) 79 mg/dL (70-99) 160 mg/dL (70-99) Laboratory Tests Test 12/08/21 07:47 12/08/21 11:41 12/08/21 16:40 12/08/21 18:34 Glucose (Fingerstick) 98 mg/dL (70-99) 106 mg/dL (70-99) 79 mg/dL (70-99) 160 mg/dL (70-99) Medications Active Scripts Medications Dose Route/Sig Max Daily Dose Days Date Category Dose Instructions Metformin Hcl Er (Metformin Hcl) 500 Mg Tab.er.24h 500 Mg PO DAILYWBKFT 12/07/21 Reported [prednisone] 10 Tab 10 1X 12/06/21 Reported DOSING: to start 12/07 4 tabs daily X 3 days 3 tabs daily X 3 days 2 tabs daily x 3 days 1 tab daily x 3 days Atorvastatin Calcium 40 Mg Tablet 1 Tab PO QHS 12/06/21 Reported Aleve (Naproxen Sodium) 220 Mg Capsule 220 Mg PO BID PRN 12/06/21 Reported Aspirin 81 Mg Tab.chew 1 Tab PO DAILY 12/06/21 Reported Multi Vitamin Daily (Multivitamin) 1 Each Tablet 1 Tab PO DAILY 30 12/06/21 Reported Duoneb 0.5-3(2.5) Mg/3 Ml (Albuterol/Ipratropium) 3 Ml Ampul.neb 3 Ml NEB Q4HRS PRN 12/06/21 Reported Trelegy Ellipta 200-62.5-25 (Fluticasone/Umeclidin/Vilanter) 1 Each Blst.w.dev 1 Each IH DAILY 12/06/21 Reported Doxycycline Hyclate 100 Mg Capsule 1 Cap PO BID 01/20/21 Rx Prednisone 20 Mg Tablet 1 Tab PO UD 12 01/20/21 Rx Take 2 tabs days 1,2,3 1.5 tabs days 3,4,5 1 tab days 6,7,8 0.5 tab days 9,10,[address] of chest reviewed 1. Solid nodular pulmonary opacities of the right upper lobe measuring up to 2.3 cm in size and groundglass opacities, most likely bronchopneumonia. Follow-up CT imaging in 3 months is advised to document this resolves to exclude the possibility of malignant nodules. 2. Very small pleural effusions. Impression . IMPRESSION: 1. Abnormal CT chest revealing evidence of nodular infiltrates, suspect residual COVID. 2. Acute chronic blood loss anemia. 3. Leukocytosis. 4. Influenza B being positive. 5. Pneumonia, suspect gram-negative, gram-positive. 6. Type 2 diabetes. 7. Chronic obstructive pulmonary disease. 8. Tobacco dependent, in remission. Plan . 12/09 1. continue treatment for bacterial pneumonia. Continue ceftriaxone and doxycycline. 2. Repeat CT chest in 2-3 months 3. The patient is instructed on the importance of discontinuing tobacco use. advised to quit smoking for ever 4. Anemia workup per PCP. 5. Noted chest x-ray, cardiac silhouette is enlarged, fu echocardiogram. 6. 02 titration 7. tamiflu 8. no steroid 9. bronchodilators, discussed w pt rn DISCUSSION: 1. Suspect the patient's dyspnea was related to his low hemoglobin along with underlying COPD and current pneumonia. I think his SARS-CoV-2 testing is an incidental finding. CT chest does not fit the usual COVID-19 viral pneumonia. Recommend continue treatment for bacterial pneumonia. Transfuse. Continue bronchodilators, ceftriaxone and doxycycline. 2. Repeat CT chest in 2-3 months 3. The patient is instructed on the importance of discontinuing tobacco use. advised to quit smoking for ever 4. Anemia workup per PCP. 5. Noted chest x-ray, cardiac silhouette is enlarged, we will order an echocardiogram. 6. 02 titration 7. tamiflu 8. no steroid discussed w pt rn ERIKA SOLANO MD Dec 09, 2021 07:24
[2021-12-09 07:25] LABS: CALCIUM 7.7 mg/dL (8.5-10.1); GFR 75.2; POTASSIUM 4.3 mmol/L (3.5-5.1)
[2021-12-09] MEDS: INSULIN LISPRO 300 UNITS/3 ML VIAL. SQ SCH ×3 (08:00→12:00)
[2021-12-09] MEDS: OSELTAMIVIR 30 MG CAPSULE PO SCH ×2 (09:18→20:17)
[2021-12-09] MEDS: ASPIRIN CHEWABLE 81 MG TABLET. PO SCH (09:18)
[2021-12-09] MEDS: FLUTICASONE/VILANTEROL 200/25 INHALER. INH SCH (09:18)
[2021-12-09] MEDS: cefTRIAXone IV Push 1 GM VIAL. IVP SCH (09:18)
[2021-12-09] MEDS: IPRATROPIUM/ALBUTEROL 20/100mcg/INH INHALER. INH SCH ×4 (09:18→20:16)
[2021-12-09] MEDS: ZINC SULFATE 220 MG CAPSULE. PO SCH (09:19)
[2021-12-09] MEDS: DOXYCYCLINE HYCLATE 100 MG TABLET PO SCH ×2 (09:19→20:17)
[2021-12-09] MEDS: LACTOBACILLUS RHAMNOSUS GG 1 CAPSULE. PO SCH ×2 (09:19→20:17)
[2021-12-09] MEDS: THIAMINE 100 MG TABLET. PO SCH (09:19)
[2021-12-09] MEDS: ASCORBIC ACID 500 MG TABLET PO SCH (09:19)
--- NOTE | 2021-12-09 10:27 | PDOC ---
[facility] PROGRESS NOTE Date of Service DOS: DATE: 12/09/21 TIME: 10:21 Chief Complaint Chief Complaint Shortness of breath - multifactorial, clearly symptomatic acute anemia. Maybe flu B and Covid 19 and post obstructive right upper lobe bacterial pneumonia play a role Acute anemia - will check reticulocytes, iron, likely GI losses. Will repeat fecal occult. Transfused 2u PRBC for severity of acute anemia Pneumonia - likely gram negative given structural lung disease, long smoking history. Will consult pulm given possible need for follow CT outpatient and obstructive possibility Influenza B - patient wishes for tamiflu treatment, advised likely this will not alter the course COVID 19 - not hypoxia, no clear role for treatment other than supportive care. Paxolovid and Sotrovimab are only indicated for outpatient treatment. COPD - cont outpatient inhalers, not clearly in acute exacerbation. I don't see an immediate indication for further steroids Diabetes-Type II - sliding scale insulin High Cholesterol - home statin Hypertension - home antihypertensives Smoker - just quit within 5 weeks CARYL - likely on some mild CKD - likely vasomotor nephropathy, monitor renal function Leukocytosis - steroid vs sepsis related. Treating sepsis with fluids, antibiotics, monitor CBC FEN - ADA diet PPX - SCDs FULL CODE Dispo - inpatient History of Present Illness History of Present Illness Mr Irby is a 66 yo male with PMHx COPD, DM2, HLD, HTN who presents to ED accompanied by his for further assessment of outpatient Hb 4.5 noted by his primary care physician. He also complains of progressive shortness of breath has been worsening over the past 3 weeks. He quit smoking 5 weeks ago and initially felt he was having a COPD exacerbation and was changed from a Wixela inhaler to Trelegy inhaler. He is finished 2 rounds of doxycycline and steroids over the past 3 weeks and was about to start another dose of steroids on 12/07/2021 when above lab findings were discovered. He has been feeling progressively more weak over the past week as well. He has not noted any blood in his stool and has never had a colonoscopy but he has had outpatient Hemoccults though previously been negative. No chest pain no abdominal pain no nausea vomiting diarrhea. No urinary complaints. No changes in his blood sugar. He is up-to-date with COVID-19 vaccinations including booster has been vaccinated against influenza. Labs with WBC 12.1, Hb 4.5 with MCV 71, platelets 290, INR 1, PT T 26, NA 143, K5.1, BUN 34, CR 1.4, glucose 107, calcium 8.4, bilirubin 0.4, AST 19, ALT 46, alkaline phosphatase 62, LDH 166, albumin 3.1, NT proBNP is 2221, ED fecal occult was negative however her ED staff notes there is actually no stool in the sample, rapid COVID-19 was positive and rapid influenza B+. Chest radiograph concerning for nodular opacities in the right upper lung. CT chest abdomen pelvis with no opacity in the right upper lobe lower lobe 2.3 cm with groundglass opacities concerning for bronchopneumonia. L3 bony abnormality nonspecific. Admitted for further care. 12/07: Hb 6.8. Feels the shortness of breath is improved minimal cough. Blood sugar in the mid 100s. Feeling weak but overall a little better. 12/08: Hb 7.3. Received iron. Repeat fecal occult negative. Feeling improved overall. He is coughing up some yellow sputum no with use of the flutter valve. He is a little stronger. Awaiting echocardiogram read and hematology evaluation. 12/09: Hb 7.8. BMP within normal limits glucose 163. Cough is improving. Tachycardia improved, echocardiogram discussed with cardiology with normal ejection fraction. Still weak with ambulation. Vitals/I&O Vitals/I&O: Vital Signs Date Time Temp Pulse Resp B/P (MAP) Pulse Ox O2 Delivery O2 Flow Rate FiO2 12/09/21 09:19 76 135/47 12/09/21 07:00 98.8 20 95 Room Air 98.8 I & O 12/08/21 12/08/21 12/09/21 15:00 23:00 07:00 Intake Total 330 ml Balance 330 ml Physical Exam General: Alert, No acute distress Heart: Regular rate Lungs: Crackles Abdomen: Soft Extremities: No edema Skin: No rashes, No breakdown, No significant lesion Labs Labs: Laboratory Tests Test 12/08/21 11:41 12/08/21 16:40 12/08/21 18:34 12/09/21 05:45 Glucose (Fingerstick) 106 mg/dL (70-99) 79 mg/dL (70-99) 160 mg/dL (70-99) White Blood Count 9.3 x10^3/uL (4.0-11.0) Red Blood Count 3.37 x10^6/uL (4.30-5.70) Hemoglobin 7.8 g/dL (13.0-17.5) Hematocrit 26.0 % (39.0-53.0) Mean Corpuscular Volume 77 fL (79-100) Mean Corpuscular Hemoglobin 23 pg (25-35) Mean Corpuscular Hemoglobin Concent 30 g/dL (31-37) Red Cell Distribution Width 22.6 % (11.5-14.5) Platelet Count 262 x10^3/uL (140-400) Neutrophils (%) (Auto) 79 % (31-73) Lymphocytes (%) (Auto) 11 % (24-48) Monocytes (%) (Auto) 9 % (0-9) Eosinophils (%) (Auto) 2 % (0-3) Basophils (%) (Auto) 0 % (0-3) Neutrophils # (Auto) 7.3 x10^3/uL (1.8-7.7) Lymphocytes # (Auto) 1.0 x10^3/uL (1.0-4.8) Monocytes # (Auto) 0.8 x10^3/uL (0.0-1.1) Eosinophils # (Auto) 0.2 x10^3/uL (0.0-0.7) Basophils # (Auto) 0.0 x10^3/uL (0.0-0.2) Absolute Reticulocyte Count 0.101 x10^6/uL (0.020-0.120) Percent Reticulocyte Count 3.0 % (0.5-2.3) Immature Reticulocyte Fraction 0.66 (0.20-0.60) Sodium Level 142 mmol/L (136-145) Potassium Level 4.3 mmol/L (3.5-5.1) Chloride Level 107 mmol/L (98-107) Carbon Dioxide Level 24 mmol/L (21-32) Anion Gap 11 (6-14) Blood Urea Nitrogen 16 mg/dL (8-26) Creatinine 1.0 mg/dL (0.7-1.3) Estimated GFR (Cockcroft-Gault) 75.2 Glucose Level 98 mg/dL (70-99) Calcium Level 7.7 mg/dL (8.5-10.1) Test 12/09/21 08:47 Glucose (Fingerstick) 163 mg/dL (70-99) Assessment and Plan Assessmemt and Plan Problems Medical Problems: (1) COVID-19 Status: Acute (2) Influenza B Status: Acute (3) Low hemoglobin Status: Acute (4) Pneumonia Status: Acute Comment Review of Relevant I have reviewed the following items teodora (where applicable) has been applied. Medications: Current Medications Medications (Trade) Dose Ordered Sig/Dimitrios Route PRN Reason Start Time Stop Time Status Last Admin Dose Admin Doxycycline Hyclate (Vibra-Tab) 100 mg BID PO 12/08/21 21:00 12/13/21 09:01 12/09/21 09:19 Justifications for Admission Other Justification BALJINDER GOEL MD Dec 09, 2021 10:27
[2021-12-09 11:00] VITALS: BP 134/44
--- NOTE | 2021-12-09 12:30 | PDOC ---
PROGRESS NOTES Date of Service: DATE: 12/09/21 TIME: 12:29 Subjective Subjective Dyspnea improved, c/o cough Objective Objective Vital Signs Date Time Temp Pulse Resp B/P (MAP) Pulse Ox O2 Delivery O2 Flow Rate FiO2 12/09/21 09:19 76 135/47 12/09/21 08:10 Room Air 12/09/21 07:00 98.8 20 95 98.8 Intake and Output 12/09/21 07:00 Intake Total 330 ml Balance 330 ml Intake Oral 330 ml # Voids 5 Physical Exam Abdomen: Soft Heart: Regular rate Extremities: No edema General: Alert, No acute distress HEENT: Atraumatic Lungs: Clear to auscultation Neuro: Normal speech Psych/Mental Status: Mood NL Skin: No rashes, No breakdown, No significant lesion Assessment Assessment 1. Sinus tachycardia: Most probably related to anemia. This has currently resolved. 2D echo showed normal LV systolic function. 2. Shortness of breath, multifactorial secondary to anemia, COPD and postobstructive pneumonia. Pulmonary team following. 3. Severe anemia s/p blood transfusion. Continue current work-up 4. Hypertension: Controlled 5. Hyperlipidemia: Statin therapy 6. DM2: Continue treatment per IM 7. Acute kidney injury: Continue intravenous fluids Plan Plan of Care Problems Medical Problems: (1) COVID-19 Status: Acute (2) Influenza B Status: Acute (3) Low hemoglobin Status: Acute (4) Pneumonia Status: Acute Comment Review of Relevant I have reviewed the following items teodora (where applicable) has been applied. Labs Laboratory Tests Test 12/08/21 16:40 12/08/21 18:34 12/09/21 05:45 12/09/21 08:47 Glucose (Fingerstick) 79 mg/dL (70-99) 160 mg/dL (70-99) 163 mg/dL (70-99) White Blood Count 9.3 x10^3/uL (4.0-11.0) Red Blood Count 3.37 x10^6/uL (4.30-5.70) Hemoglobin 7.8 g/dL (13.0-17.5) Hematocrit 26.0 % (39.0-53.0) Mean Corpuscular Volume 77 fL (79-100) Mean Corpuscular Hemoglobin 23 pg (25-35) Mean Corpuscular Hemoglobin Concent 30 g/dL (31-37) Red Cell Distribution Width 22.6 % (11.5-14.5) Platelet Count 262 x10^3/uL (140-400) Neutrophils (%) (Auto) 79 % (31-73) Lymphocytes (%) (Auto) 11 % (24-48) Monocytes (%) (Auto) 9 % (0-9) Eosinophils (%) (Auto) 2 % (0-3) Basophils (%) (Auto) 0 % (0-3) Neutrophils # (Auto) 7.3 x10^3/uL (1.8-7.7) Lymphocytes # (Auto) 1.0 x10^3/uL (1.0-4.8) Monocytes # (Auto) 0.8 x10^3/uL (0.0-1.1) Eosinophils # (Auto) 0.2 x10^3/uL (0.0-0.7) Basophils # (Auto) 0.0 x10^3/uL (0.0-0.2) Absolute Reticulocyte Count 0.101 x10^6/uL (0.020-0.120) Percent Reticulocyte Count 3.0 % (0.5-2.3) Immature Reticulocyte Fraction 0.66 (0.20-0.60) Sodium Level 142 mmol/L (136-145) Potassium Level 4.3 mmol/L (3.5-5.1) Chloride Level 107 mmol/L (98-107) Carbon Dioxide Level 24 mmol/L (21-32) Anion Gap 11 (6-14) Blood Urea Nitrogen 16 mg/dL (8-26) Creatinine 1.0 mg/dL (0.7-1.3) Estimated GFR (Cockcroft-Gault) 75.2 Glucose Level 98 mg/dL (70-99) Calcium Level 7.7 mg/dL (8.5-10.1) Test 12/09/21 10:57 Glucose (Fingerstick) 139 mg/dL (70-99) Microbiology 12/07/21 Blood Culture - Preliminary, Resulted NO GROWTH AFTER 2 DAYS Medications Current Medications Doxycycline Hyclate (Vibra-Tab) 100 mg BID PO Last administered on 12/09/21at 09:19; Start 12/08/21 at 21:00; Stop 12/13/21 at 09:01 Vitals/I & O Vital Sign - Last 24 Hours 12/08/21 12/08/21 12/08/21 12/08/21 15:00 19:00 19:10 22:33 Temp 98.0 97.8 97.8 98.0 97.8 97.8 Pulse 68 68 81 Resp 18 17 18 B/P (MAP) 133/46 (75) 136/58 (84) 137/42 (73) Pulse Ox 98 96 95 O2 Delivery Room Air Room Air Room Air Room Air 12/09/21 12/09/21 12/09/21 12/09/21 02:39 07:00 08:10 09:19 Temp 97.7 98.8 97.7 98.8 Pulse 76 76 76 Resp 17 20 B/P (MAP) 136/44 (74) 135/47 (76) 135/47 Pulse Ox 93 95 O2 Delivery Room Air Room Air Room Air Intake and Output 12/08/21 12/08/21 12/09/21 15:00 23:00 07:00 Intake Total 330 ml Balance 330 ml MOHINDER CLARK MD Dec 09, 2021 12:30
[2021-12-09 15:00] VITALS: BP 132/41
[2021-12-09] MEDS: metFORMIN 500 MG TABLET PO SCH (16:30)
[2021-12-09 19:00] VITALS: BP 141/51
[2021-12-09] MEDS: ATORVASTATIN CALCIUM 40 MG TABLET. PO SCH (20:17)
[2021-12-09 22:35] VITALS: BP 144/58
[2021-12-10 02:54] VITALS: BP 148/59
[2021-12-10 06:58] LABS: BASO % 1 % (0-3); EOS # 0.3 x10^3/uL (0.0-0.7); EOS % 4 % (0-3); HEMATOCRIT 26.9 % (39.0-53.0); HEMOGLOBIN 8.1 g/dL (13.0-17.5); LYMPH # 1.1 x10^3/uL (1.0-4.8); LYMPH % 13 % (24-48); MEAN CORPUSCULAR HEMOGLOBIN 24 pg (25-35); MEAN CORPUSCULAR HGB CONC 30 g/dL (31-37); MEAN CORPUSCULAR VOLUME 80 fL (79-100); MONO # 0.8 x10^3/uL (0.0-1.1); MONO % 10 % (0-9); NEUT % 73 % (31-73); PLATELET COUNT 258 x10^3/uL (140-400); RED BLOOD COUNT 3.38 x10^6/uL (4.30-5.70); WHITE BLOOD COUNT 8.1 x10^3/uL (4.0-11.0)
[2021-12-10 07:00] VITALS: BP 138/48
[2021-12-10 07:04] LABS: CALCIUM 8.2 mg/dL (8.5-10.1); GFR 75.2; POTASSIUM 4.5 mmol/L (3.5-5.1)
[2021-12-10] MEDS: INSULIN LISPRO 300 UNITS/3 ML VIAL. SQ SCH ×2 (08:00→12:00)
[2021-12-10] MEDS: THIAMINE 100 MG TABLET. PO SCH (08:17)
[2021-12-10] MEDS: IPRATROPIUM/ALBUTEROL 20/100mcg/INH INHALER. INH SCH ×2 (08:17→12:06)
[2021-12-10] MEDS: ASPIRIN CHEWABLE 81 MG TABLET. PO SCH (08:17)
[2021-12-10] MEDS: metFORMIN 500 MG TABLET PO SCH (08:18)
[2021-12-10] MEDS: ZINC SULFATE 220 MG CAPSULE. PO SCH (08:18)
[2021-12-10] MEDS: DOXYCYCLINE HYCLATE 100 MG TABLET PO SCH (08:19)
[2021-12-10] MEDS: LACTOBACILLUS RHAMNOSUS GG 1 CAPSULE. PO SCH (08:19)
[2021-12-10] MEDS: FLUTICASONE/VILANTEROL 200/25 INHALER. INH SCH (08:20)
[2021-12-10] MEDS: OSELTAMIVIR 30 MG CAPSULE PO SCH (08:20)
[2021-12-10] MEDS: ASCORBIC ACID 500 MG TABLET PO SCH (08:20)
--- NOTE | 2021-12-10 09:57 | PDOC ---
PULMONARY PROGRESS NOTES DATE: 12/10/21 TIME: 09:52 Subjective patient is on RA. denies shortness of breath. cough improved. feeling better overall. Vitals Vital Signs Date Time Temp Pulse Resp B/P (MAP) Pulse Ox O2 Delivery O2 Flow Rate FiO2 12/10/21 08:17 78 138/48 12/10/21 08:15 Room Air 12/10/21 07:00 98.1 20 98.1 12/10/21 02:54 97 ROS: No Nausea, No Chest Pain General: Alert, Oriented X4 HEENT: Other (nc at perrl ) Lungs: Crackles Cardiovascular: S1, S2 Abdomen: Soft, Non-tender Neuro Exam: Alert Extremities: No Edema Skin: Warm Labs Laboratory Tests Test 12/08/21 11:41 12/08/21 16:40 12/08/21 18:34 12/09/21 05:45 Glucose (Fingerstick) 106 mg/dL (70-99) 79 mg/dL (70-99) 160 mg/dL (70-99) White Blood Count 9.3 x10^3/uL (4.0-11.0) Red Blood Count 3.37 x10^6/uL (4.30-5.70) Hemoglobin 7.8 g/dL (13.0-17.5) Hematocrit 26.0 % (39.0-53.0) Mean Corpuscular Volume 77 fL (79-100) Mean Corpuscular Hemoglobin 23 pg (25-35) Mean Corpuscular Hemoglobin Concent 30 g/dL (31-37) Red Cell Distribution Width 22.6 % (11.5-14.5) Platelet Count 262 x10^3/uL (140-400) Neutrophils (%) (Auto) 79 % (31-73) Lymphocytes (%) (Auto) 11 % (24-48) Monocytes (%) (Auto) 9 % (0-9) Eosinophils (%) (Auto) 2 % (0-3) Basophils (%) (Auto) 0 % (0-3) Neutrophils # (Auto) 7.3 x10^3/uL (1.8-7.7) Lymphocytes # (Auto) 1.0 x10^3/uL (1.0-4.8) Monocytes # (Auto) 0.8 x10^3/uL (0.0-1.1) Eosinophils # (Auto) 0.2 x10^3/uL (0.0-0.7) Basophils # (Auto) 0.0 x10^3/uL (0.0-0.2) Absolute Reticulocyte Count 0.101 x10^6/uL (0.020-0.120) Percent Reticulocyte Count 3.0 % (0.5-2.3) Immature Reticulocyte Fraction 0.66 (0.20-0.60) Sodium Level 142 mmol/L (136-145) Potassium Level 4.3 mmol/L (3.5-5.1) Chloride Level 107 mmol/L (98-107) Carbon Dioxide Level 24 mmol/L (21-32) Anion Gap 11 (6-14) Blood Urea Nitrogen 16 mg/dL (8-26) Creatinine 1.0 mg/dL (0.7-1.3) Estimated GFR (Cockcroft-Gault) 75.2 Glucose Level 98 mg/dL (70-99) Calcium Level 7.7 mg/dL (8.5-10.1) Test 12/09/21 08:47 12/09/21 10:57 12/09/21 16:53 12/09/21 18:50 Glucose (Fingerstick) 163 mg/dL (70-99) 139 mg/dL (70-99) 94 mg/dL (70-99) 212 mg/dL (70-99) Test 12/10/21 06:10 12/10/21 07:42 White Blood Count 8.1 x10^3/uL (4.0-11.0) Red Blood Count 3.38 x10^6/uL (4.30-5.70) Hemoglobin 8.1 g/dL (13.0-17.5) Hematocrit 26.9 % (39.0-53.0) Mean Corpuscular Volume 80 fL (79-100) Mean Corpuscular Hemoglobin 24 pg (25-35) Mean Corpuscular Hemoglobin Concent 30 g/dL (31-37) Red Cell Distribution Width 23.0 % (11.5-14.5) Platelet Count 258 x10^3/uL (140-400) Neutrophils (%) (Auto) 73 % (31-73) Lymphocytes (%) (Auto) 13 % (24-48) Monocytes (%) (Auto) 10 % (0-9) Eosinophils (%) (Auto) 4 % (0-3) Basophils (%) (Auto) 1 % (0-3) Neutrophils # (Auto) 6.0 x10^3/uL (1.8-7.7) Lymphocytes # (Auto) 1.1 x10^3/uL (1.0-4.8) Monocytes # (Auto) 0.8 x10^3/uL (0.0-1.1) Eosinophils # (Auto) 0.3 x10^3/uL (0.0-0.7) Basophils # (Auto) 0.0 x10^3/uL (0.0-0.2) Sodium Level 143 mmol/L (136-145) Potassium Level 4.5 mmol/L (3.5-5.1) Chloride Level 108 mmol/L (98-107) Carbon Dioxide Level 26 mmol/L (21-32) Anion Gap 9 (6-14) Blood Urea Nitrogen 13 mg/dL (8-26) Creatinine 1.0 mg/dL (0.7-1.3) Estimated GFR (Cockcroft-Gault) 75.2 Glucose Level 104 mg/dL (70-99) Calcium Level 8.2 mg/dL (8.5-10.1) Glucose (Fingerstick) 111 mg/dL (70-99) Laboratory Tests Test 12/09/21 10:57 12/09/21 16:53 12/09/21 18:50 12/10/21 06:10 Glucose (Fingerstick) 139 mg/dL (70-99) 94 mg/dL (70-99) 212 mg/dL (70-99) White Blood Count 8.1 x10^3/uL (4.0-11.0) Red Blood Count 3.38 x10^6/uL (4.30-5.70) Hemoglobin 8.1 g/dL (13.0-17.5) Hematocrit 26.9 % (39.0-53.0) Mean Corpuscular Volume 80 fL (79-100) Mean Corpuscular Hemoglobin 24 pg (25-35) Mean Corpuscular Hemoglobin Concent 30 g/dL (31-37) Red Cell Distribution Width 23.0 % (11.5-14.5) Platelet Count 258 x10^3/uL (140-400) Neutrophils (%) (Auto) 73 % (31-73) Lymphocytes (%) (Auto) 13 % (24-48) Monocytes (%) (Auto) 10 % (0-9) Eosinophils (%) (Auto) 4 % (0-3) Basophils (%) (Auto) 1 % (0-3) Neutrophils # (Auto) 6.0 x10^3/uL (1.8-7.7) Lymphocytes # (Auto) 1.1 x10^3/uL (1.0-4.8) Monocytes # (Auto) 0.8 x10^3/uL (0.0-1.1) Eosinophils # (Auto) 0.3 x10^3/uL (0.0-0.7) Basophils # (Auto) 0.0 x10^3/uL (0.0-0.2) Sodium Level 143 mmol/L (136-145) Potassium Level 4.5 mmol/L (3.5-5.1) Chloride Level 108 mmol/L (98-107) Carbon Dioxide Level 26 mmol/L (21-32) Anion Gap 9 (6-14) Blood Urea Nitrogen 13 mg/dL (8-26) Creatinine 1.0 mg/dL (0.7-1.3) Estimated GFR (Cockcroft-Gault) 75.2 Glucose Level 104 mg/dL (70-99) Calcium Level 8.2 mg/dL (8.5-10.1) Test 12/10/21 07:42 Glucose (Fingerstick) 111 mg/dL (70-99) Medications Active Scripts Medications Dose Route/Sig Max Daily Dose Days Date Category Dose Instructions Metformin Hcl Er (Metformin Hcl) 500 Mg Tab.er.24h 500 Mg PO DAILYWBKFT 12/07/21 Reported [prednisone] 10 Tab 10 1X 12/06/21 Reported DOSING: to start 12/07 4 tabs daily X 3 days 3 tabs daily X 3 days 2 tabs daily x 3 days 1 tab daily x 3 days Atorvastatin Calcium 40 Mg Tablet 1 Tab PO QHS 12/06/21 Reported Aleve (Naproxen Sodium) 220 Mg Capsule 220 Mg PO BID PRN 12/06/21 Reported Aspirin 81 Mg Tab.chew 1 Tab PO DAILY 12/06/21 Reported Multi Vitamin Daily (Multivitamin) 1 Each Tablet 1 Tab PO DAILY 30 12/06/21 Reported Duoneb 0.5-3(2.5) Mg/3 Ml (Albuterol/Ipratropium) 3 Ml Ampul.neb 3 Ml NEB Q4HRS PRN 12/06/21 Reported Trelegy Ellipta 200-62.5-25 (Fluticasone/Umeclidin/Vilanter) 1 Each Blst.w.dev 1 Each IH DAILY 12/06/21 Reported Doxycycline Hyclate 100 Mg Capsule 1 Cap PO BID 01/20/21 Rx Prednisone 20 Mg Tablet 1 Tab PO UD 12 01/20/21 Rx Take 2 tabs days 1,2,3 1.5 tabs days 3,4,5 1 tab days 6,7,8 0.5 tab days 9,10,[address] of chest reviewed 1. Solid nodular pulmonary opacities of the right upper lobe measuring up to 2.3 cm in size and groundglass opacities, most likely bronchopneumonia. Follow-up CT imaging in 3 months is advised to document this resolves to exclude the possi bility of malignant nodules. 2. Very small pleural effusions. Impression . IMPRESSION: 1. Abnormal CT chest revealing evidence of nodular infiltrates, suspect residual COVID. 2. Acute chronic blood loss anemia. 3. Leukocytosis. 4. Influenza B being positive. 5. Pneumonia, suspect gram-negative, gram-positive. 6. Type 2 diabetes. 7. Chronic obstructive pulmonary disease. 8. Tobacco dependent, in remission. Plan . 12/10 continue rocephin and doxycycline will need repeat CT chest in 2-3 months continue full course of tamiflu Echo shows normal LV function Could discharge home today, follow-up with me in Januaryfebruary 18 1. continue treatment for bacterial pneumonia. Continue ceftriaxone and doxycycline. 2. Repeat CT chest in 2-3 months 3. The patient is instructed on the importance of discontinuing tobacco use. advised to quit smoking for ever 4. Anemia workup per PCP. 5. Noted chest x-ray, cardiac silhouette is enlarged, fu echocardiogram. 6. 02 titration 7. tamiflu 8. no steroid 9. bronchodilators, discussed w pt TIMOTHY Galvan MD Dec 10, 2021 09:56
--- NOTE | 2021-12-10 10:09 | CARD ---
MR#: [id number] Date of Study: 12/07/2021 Ordering Physician: TIMOTHY LY, Referring Physician: Dex FLORES: [facility] APPROVED REPORT EXAM: Two-dimensional and M-mode echocardiogram with Doppler and color Doppler. Other Information Quality : AverageHR: 72bpm Rhythm : Atrial Fibrillation INDICATION COPD Dyspnea RISK FACTORS Hypertension Hyperlipidemia Diabetes Smoking 2D DIMENSIONS Left Atrium(2D)3.5 (1.6-4.0cm)IVSd0.9 (0.7-1.1cm) Aortic Root(2D)3.1 (2.0-3.7cm)LVDd5.0 (3.9-5.9cm) LVOT Diameter1.9 (1.8-2.4cm)PWd0.9 (0.7-1.1cm) LVDs2.9 (2.5-4.0cm)FS (%) 42.4 % SV87.8 mlLVEF(%)73.2 (>50%) Aortic Valve AoV Peak Myles.172.4cm/sAoV VTI33.7cm AO Peak GR.11.9mmHgLVOT Peak Myles.115.2cm/s AO Mean GR.8mmHgAVA (VMAX)1.92cm2 Mitral Valve MV E Higzgtqy132.2cm/sMV E Peak Gr.4mmHg MV DECEL [id number] A Ltwlhvuo74.2cm/s MV E Mean Gr.2mmHgE/A Ratio2.9 Pulmonary Valve PV Peak Zlgfzeod637.1cm/s Tricuspid Valve TR P. Wpzooabl336yd/sTR Peak Gr.36mmHg Pulmonary Vein S1 Xotwpxjp21.7cm/sD2 Ifclpuzn85.8cm/s LEFT VENTRICLE The left ventricle is normal size. There is normal left ventricular wall thickness. The left ventricu lar systolic function is normal and the ejection fraction is within normal range. EF 55% There is nor mal LV segmental wall motion. Diastolic function unable to be assessed due to atrial fibrillation. No left ventricle thrombus noted on this study. There is no ventricular septal defect visualized. There is no left ventricular aneurysm. There is no mass noted in the left ventricle. RIGHT VENTRICLE The right ventricle is normal size. There is normal right ventricular wall thickness. The right ventr icular systolic function is normal. ATRIA The left atrium is mildly dilated. The right atrium size is normal. The interatrial septum is intact with no evidence for an atrial septal defect or patent foramen ovale as noted on 2-D or Doppler imagi ng. AORTIC VALVE The aortic valve is normal in structure and function. The aortic valve is mildly sclerotic. Doppler a nd Color Flow revealed no significant aortic regurgitation. There is no significant aortic valvular s tenosis. There is no aortic valvular vegetation. MITRAL VALVE The mitral valve is normal in structure and function. There is no evidence of mitral valve prolapse. There is no mitral valve stenosis. Doppler and Color-flow revealed mild mitral regurgitation. TRICUSPID VALVE The tricuspid valve is normal in structure and function. Doppler and Color Flow revealed trace to mil d tricuspid regurgitation. The PA pressure was estimated at 43 mmHg. There is no tricuspid valve prol apse or vegetation. There is no tricuspid valve stenosis. PULMONIC VALVE Doppler and Color Flow revealed no pulmonic valvular regurgitation. There is no pulmonic valvular ceci nosis. GREAT VESSELS The aortic root is normal in size. The ascending aorta is normal in size. The IVC is normal in size a nd collapses >50% with inspiration. PERICARDIAL EFFUSION There is no pleural effusion. There is no evidence of significant pericardial effusion. Critical Notification Critical Value: No <Conclusion> The left ventricular systolic function is normal and the ejection fraction is within normal range. EF 55% There is normal LV segmental wall motion. Doppler and Color Flow revealed trace to mild tricuspid regurgitation. The PA pressure was estimated at 43 mmHg. Signed by : Cade Damon, Electronically Approved : 12/10/2021 10:09:14
[2021-12-10] MEDS: cefTRIAXone IV Push 1 GM VIAL. IVP SCH (10:17)
--- NOTE | 2021-12-10 10:37 | PDOC ---
BANDAR HANKS [employer]ICAL OFFICE SUPERVISOR 12/10/21 1037: CARDIO Progress Notes Date and Time Date of Service 12/10/21 Time of Evaluation 1035 Subjective Subjective: No Chest Pain, No shortness of breath, No Palpitations Vitals Vitals Vital Signs Date Time Temp Pulse Resp B/P (MAP) Pulse Ox O2 Delivery O2 Flow Rate FiO2 12/10/21 08:17 78 138/48 12/10/21 08:15 Room Air 12/10/21 07:00 98.1 20 98.1 12/10/21 02:54 97 Weight Weight [ ] Input and Output Intake and Output Intake and Output 12/10/21 07:00 Intake Total 400 ml Balance 400 ml Intake Oral 400 ml # Voids 2 Laboratory Labs Laboratory Tests Test 12/09/21 10:57 12/09/21 16:53 12/09/21 18:50 12/10/21 06:10 Glucose (Fingerstick) 139 mg/dL (70-99) 94 mg/dL (70-99) 212 mg/dL (70-99) White Blood Count 8.1 x10^3/uL (4.0-11.0) Red Blood Count 3.38 x10^6/uL (4.30-5.70) Hemoglobin 8.1 g/dL (13.0-17.5) Hematocrit 26.9 % (39.0-53.0) Mean Corpuscular Volume 80 fL (79-100) Mean Corpuscular Hemoglobin 24 pg (25-35) Mean Corpuscular Hemoglobin Concent 30 g/dL (31-37) Red Cell Distribution Width 23.0 % (11.5-14.5) Platelet Count 258 x10^3/uL (140-400) Neutrophils (%) (Auto) 73 % (31-73) Lymphocytes (%) (Auto) 13 % (24-48) Monocytes (%) (Auto) 10 % (0-9) Eosinophils (%) (Auto) 4 % (0-3) Basophils (%) (Auto) 1 % (0-3) Neutrophils # (Auto) 6.0 x10^3/uL (1.8-7.7) Lymphocytes # (Auto) 1.1 x10^3/uL (1.0-4.8) Monocytes # (Auto) 0.8 x10^3/uL (0.0-1.1) Eosinophils # (Auto) 0.3 x10^3/uL (0.0-0.7) Basophils # (Auto) 0.0 x10^3/uL (0.0-0.2) Sodium Level 143 mmol/L (136-145) Potassium Level 4.5 mmol/L (3.5-5.1) Chloride Level 108 mmol/L (98-107) Carbon Dioxide Level 26 mmol/L (21-32) Anion Gap 9 (6-14) Blood Urea Nitrogen 13 mg/dL (8-26) Creatinine 1.0 mg/dL (0.7-1.3) Estimated GFR (Cockcroft-Gault) 75.2 Glucose Level 104 mg/dL (70-99) Calcium Level 8.2 mg/dL (8.5-10.1) Test 12/10/21 07:42 Glucose (Fingerstick) 111 mg/dL (70-99) Microbiology Micro Microbiology 12/07/21 Blood Culture - Preliminary, Resulted NO GROWTH AFTER 3 DAYS Physical Exam HEENT: Neck Supple W Full Motion Chest: Symmetric LUNGS: Clear to Auscultation Heart: S1S2, RRR Abdomen: Soft N/T Extremities: No Edema Neurology: alert, oriented, follow commands Assessment Assessment 1. Sinus tachycardia: Most probably related to anemia. This has currently resolved. 2D echo showed normal LV systolic function. 2. Shortness of breath, multifactorial secondary to anemia, COPD and postobstructive pneumonia. Pulmonary team following. 3. Severe anemia s/p blood transfusion. Continue current work-up 4. Hypertension: Controlled 5. Hyperlipidemia: Statin therapy 6. DM2: Continue treatment per IM 7. Acute kidney injury: Continue intravenous fluids Justicifation of Admission Dx: Justifications for Admission: Justification of Admission Dx: Yes Comments: COVID + Sinus tachycardia Anemia Elevated troponin MOHINDER CLARK MD 12/11/21 0624: CARDIO Progress Notes Assessment Assessment Patient seen and examined 12/10/2021. Agree with INSPECTOR [employer]IC[employer]'s assessment and plan. Sinus tachycardia most probably secondary to anemia, currently resolved 2D echo showed normal LV systolic function Continue current work-up for anemia BANDAR HANKS APRN Dec 10, 2021 10:37 MOHINDER CLARK MD Dec 11, 2021 06:24
[2021-12-10 11:00] VITALS: BP 143/45
[2021-12-10] MEDS ORDERED: AMLO-187 PO (11:06)
[2021-12-10] MEDS ORDERED: DOXY100T PO (11:09)
[2021-12-10] MEDS ORDERED: OSEL30CA PO (11:09)
--- NOTE | 2021-12-10 11:11 | PDOC3 ---
[facility]-Discharge Summary Date of Admission: Date of Admission: Dec 06, 2021 Date of Discharge: Date of Discharge: Dec 10, 2021 Admission Diagnosis: Problems: (1) COVID-19 (2) Low hemoglobin (3) Influenza B (4) Pneumonia Consults: Consults: Cards, Pulm Hospital Course: Hospital Course: Chief Complaint Shortness of breath - multifactorial, clearly symptomatic acute anemia. Maybe flu B and Covid 19 and post obstructive right upper lobe bacterial pneumonia play a role Acute anemia - will check reticulocytes, iron, likely GI losses. Will repeat fecal occult. Transfused 2u PRBC for severity of acute anemia Pneumonia - likely gram negative given structural lung disease, long smoking history. Will consult pulm given possible need for follow CT outpatient and obstructive possibility Influenza B - patient wishes for tamiflu treatment, advised likely this will not alter the course COVID 19 - not hypoxia, no clear role for treatment other than supportive care. Paxolovid and Sotrovimab are only indicated for outpatient treatment. COPD - cont outpatient inhalers, not clearly in acute exacerbation. I don't see an immediate indication for further steroids Diabetes-Type II - sliding scale insulin High Cholesterol - home statin Hypertension - home antihypertensives Smoker - just quit within 5 weeks CARYL - likely on some mild CKD - likely vasomotor nephropathy, monitor renal function Leukocytosis - steroid vs sepsis related. Treating sepsis with fluids, antibiotics, monitor CBC FEN - ADA diet PPX - SCDs FULL CODE Dispo - inpatient History of Present Illness History of Present Illness Mr Irby is a 66 yo male with PMHx COPD, DM2, HLD, HTN who presents to ED accompanied by his for further assessment of outpatient Hb 4.5 noted by his primary care physician. He also complains of progressive shortness of breath has been worsening over the past 3 weeks. He quit smoking 5 weeks ago and initially felt he was having a COPD exacerbation and was changed from a Wixela inhaler to Trelegy inhaler. He is finished 2 rounds of doxycycline and steroids over the past 3 weeks and was about to start another dose of steroids on 12/07/2021 when above lab findings were discovered. He has been feeling prog ressively more weak over the past week as well. He has not noted any blood in his stool and has never had a colonoscopy but he h as had outpatient Hemoccults though previously been negative. No chest pain no abdominal pain no nausea vomiting diarrhea. No urinary complaints. No changes in his blood sugar. He is up-to-date with COVID-19 vaccinations including booster has been vacci nated against influenza. Labs with WBC 12.1, Hb 4.5 with MCV 71, platelets 290, INR 1, PT T 26, NA 143, K5.1, BUN 34, CR 1.4, glucose 107, calcium 8.4, bilirubin 0.4, AST 19, ALT 46, alkaline phosphatase 62, LDH 166, albumin 3.1, NT proBNP is 2221, ED fecal occult was negative however her ED staff notes there is actually no stool in the sample, rapid COVID-19 was positive and rapid influenza B+. Chest radiograph concerning for nodular opacities in the right upper lung. CT chest abdomen pelvis with no opacity in the right upper lobe lower lobe 2.3 cm with groundglass opacities concerning for bronchopneumonia. L3 bony abnormality nonspecific. Admitted for further care. 12/07: Hb 6.8. Feels the shortness of breath is improved minimal cough. Blood sugar in the mid 100s. Feeling weak but overall a little better. 12/08: Hb 7.3. Received iron. Repeat fecal occult negative. Feeling improved overall. He is coughing up some yellow sputum no with use of the flutter valve. He is a little stronger. Awaiting echocardiogram read and hematology evaluation. 12/09: Hb 7.8. BMP within normal limits glucose 163. Cough is improving. Tachycardia improved, echocardiogram discussed with cardiology with normal ejection fraction. Still weak with ambulation. 12/10 Patient evaluated examined at bedside. Doing well says breathing feels much improved. On room air. Discharge home today. Greater than 30 minutes spent on discharge. 19 minutes advance care planning Disposition: Disposition/Orders: D/C to Home Activity: Activity: Resume previous activity Diet: Diet: Cardiac Medications: Home Meds Active Scripts Oseltamivir Phosphate (TAMIFLU) 30 Mg Capsule, 30 MG PO BID for flu for 2 Days, #4 CAP Prov:BALJINDER LEZAMA MD 12/10/21 Doxycycline Hyclate (DOXYCYCLINE HYCLATE) 100 Mg Tablet, 100 MG PO BID for pneumonia for 3 Days, #6 TAB Prov:BALJINDER LEZAMA MD 12/10/21 Amlodipine Besylate (AMLODIPINE BESYLATE) 10 Mg Tablet, 10 MG PO DAILY for hypertension for 30 Days, #30 TAB Prov:BALJINDER LEZAMA MD 12/10/21 Prednisone (PREDNISONE) 20 Mg Tablet, 1 TAB PO UD for 12 Days, #15 TAB Take 2 tabs days 1,2,3 1.5 tabs days 3,4,5 1 tab days 6,7,8 0.5 tab days 9,10,11 Prov:NEHA ARREOLA DO 01/20/21 Reported Medications Metformin Hcl (METFORMIN HCL ER) 500 Mg Tab.er.24h, 500 MG PO DAILYWBKFT for ANTI-DIABETIC, TAB 0 Refills 12/07/21 [prednisone] 10 TAB No Conflict Check, 10 1X DOSING: to start 12/07 4 tabs daily X 3 days 3 tabs daily X 3 days 2 tabs daily x 3 days 1 tab daily x 3 days 12/06/21 Atorvastatin Calcium (ATORVASTATIN CALCIUM) 40 Mg Tablet, 1 TAB PO QHS for cholesterol, #90 TAB 3 Refills 12/06/21 Naproxen Sodium (ALEVE) 220 Mg Capsule, 220 MG PO BID PRN for PAIN, CAP 12/06/21 Aspirin (ASPIRIN) 81 Mg Tab.chew, 1 TAB PO DAILY for "heart health", #30 TAB 3 Refills 12/06/21 Multivitamin (MULTI VITAMIN DAILY) 1 Each Tablet, 1 TAB PO DAILY for supplement for 30 Days, #30 TAB 0 Refills 12/06/21 Ipratropium/Albuterol Sulfate (DUONEB 0.5-3(2.5) MG/3 ML) 3 Ml Ampul.neb, 3 ML NEB Q4HRS PRN for SHORTNESS OF BREATH, EACH 12/06/21 Fluticasone/Umeclidin/Vilanter (Trelegy Ellipta 200-62.5-25) 1 Each Blst.w.dev, 1 EACH IH DAILY for COPD 12/06/21 Discontinued Scripts Doxycycline Hyclate (DOXYCYCLINE HYCLATE) 100 Mg Capsule, 1 CAP PO BID, #20 CAP Prov:NEHA ARREOLA DO 01/20/21 Scheduled Amlodipine Besylate (Amlodipine Besylate), 10 MG PO DAILY Aspirin (Aspirin), 1 TAB PO DAILY, (Reported) Atorvastatin Calcium (Atorvastatin Calcium), 1 TAB PO QHS, (Reported) Fluticasone/Umeclidin/Vilanter (Trelegy Ellipta 200-62.5-25), 1 EACH IH DAILY, (Reported) Metformin Hcl (Metformin Hcl Er), 500 MG PO DAILYWBKFT, (Reported) Multivitamin (Multi Vitamin Daily), 1 TAB PO DAILY, (Reported) Oseltamivir Phosphate (Tamiflu), 30 MG PO BID Prednisone (Prednisone), 1 TAB PO UD [prednisone], 10 1X, (Reported) Scheduled PRN Ipratropium/Albuterol Sulfate (Duoneb 0.5-3(2.5) Mg/3 Ml), 3 ML NEB Q4HRS PRN for SHORTNESS OF BREATH, (Reported) Naproxen Sodium (Aleve), 220 MG PO BID PRN for PAIN, (Reported) Discontinued Medications Doxycycline Hyclate (Doxycycline Hyclate), 1 CAP PO BID Justicifation of Admission Dx: Justifications for Admission: Justification of Admission Dx: Yes (pneumonia, covid 19) BALJINDER LEZAMA MD Dec 10, 2021 11:11
--- NOTE | 2021-12-10 12:22 | NUR ---
SW following. Discussed with RN, pt from home with . Discharge order for home with self care. RN advised no SW needs.
--- NOTE | 2021-12-10 13:44 | NUR ---
pt was discharged home with self care. 3 scripts were sent to his verified pharm. she was wheeled down to the main entrance by BOBBIN DUMPER. Dre Mata RN
== END 2021-12-10 14:00 | disposition home or self-care (01) | DRG 871 ==
LOC: ER 13:44 → 5 SOUTH 16:37
PROVIDERS: ADMIT Internal Medicine; ATTEND Internal Medicine
PROC: 30233N1 Transfusion of Nonautologous Red Blood Cells into Peripheral Vein, Percutaneous Approach (ICD-10-PCS; principal; 2021-12-06)
DX: A41.89 Other specified sepsis (principal); U07.1 COVID-19; J15.6 Pneumonia due to other Gram-negative bacteria; J10.08 Influenza due to other identified influenza virus with other specified pneumonia; J12.82 Pneumonia due to coronavirus disease 2019; J18.0 Bronchopneumonia, unspecified organism; N17.0 Acute kidney failure with tubular necrosis; J15.9 Unspecified bacterial pneumonia; J44.0 Chronic obstructive pulmonary disease with (acute) lower respiratory infection; J44.1 Chronic obstructive pulmonary disease with (acute) exacerbation; D50.0 Iron deficiency anemia secondary to blood loss (chronic); E11.22 Type 2 diabetes mellitus with diabetic chronic kidney disease; E78.00 Pure hypercholesterolemia, unspecified; E78.5 Hyperlipidemia, unspecified; F17.201 Nicotine dependence, unspecified, in remission; I12.9 Hypertensive chronic kidney disease with stage 1 through stage 4 chronic kidney disease, or unspecified chronic kidney disease; I25.10 Atherosclerotic heart disease of native coronary artery without angina pectoris; M51.36 Other intervertebral disc degeneration, lumbar region; N18.2 Chronic kidney disease, stage 2 (mild); Z82.49 Family history of ischemic heart disease and other diseases of the circulatory system; Z83.3 Family history of diabetes mellitus
CPT/HCPCS: 36415; 36430; 71045; 71260; 74177; 80048; 80053; 82274; 82607; 82962; 83540; 83550; 83615; 83880; 84443; 85007; 85025; 85027; 85045; 85610; 85730; 86850; 86900; 86901; 86920; 87040; 87426; 87428; 93005; 93306; 94667; 96365; 96366; 96375; J0696; J1756; J1940; J3490; J7050; J7060; P9016; Q9967; 99285-25; C8929; G0378; J7030

== ENCOUNTER → 2022-03-08 | Outpatient (CLI) | payer OTHER ==
[~2022-03-08] MED LIST changes: +AMLO-187 PO; +ASPI-630 PO; +ATOR40TA59 PO; +DOXY100T PO; +FLUT1BLS15 IH; +IPRA3AMP29 NEB; +METF-658 PO; +MULT-245 PO; +NAPR220C4 PO; +OSEL30CA PO; +prednisone
--- NOTE | 2022-03-08 12:47 | RAD ---
EXAM: Chest CT without intravenous contrast. HISTORY: Pulmonary nodule. TECHNIQUE: Computed tomographic images of the chest were obtained without contrast. Multiplanar refor matting was performed. *One or more of the following individualized dose reduction techniques were utilized for this examina tion: 1. Automated exposure control. 2. Adjustment of the mA and/or kV according to patient size. 3. Use of iterative reconstruction technique. COMPARISON: 12/06/2021. FINDINGS: There has been resolution of previously demonstrated nodular infiltrate within the right up per lobe. There is no new infiltrate. There is mild emphysema and associated air trapping. There is n o pneumothorax or pleural effusion. There is a stable 2 mm nodule within the right upper lobe (series 3, image 52). The heart is normal in size. There is coronary artery calcification. There is calcifie d atherosclerotic plaque involving the aorta and aortic arch great vessels. There is no lymphadenopat hy. There is a tiny hiatal hernia. There is no acute finding involving the upper abdomen. There is de generative change throughout the spine. There are multiple endplate Schmorl's nodes. The previously d escribed sclerotic changes involving L3 are excluded from the [id number]. IMPRESSION: 1. Resolution of previously demonstrated nodular infiltrate. 2. Stable tiny benign 2 mm nodule within the right upper lobe. No suspicious nodule is seen. 3. Mild emphysema with associated air trapping. 4. Tiny hiatal hernia. 5. Coronary artery calcification. Electronically signed by: Roma Vann MD (03/08/2022 12:45 PM) [facility]
== END ==
LOC: CT 09:56
PROVIDERS: ATTEND Internal Medicine Pulmonary Disease
DX: R91.1 Solitary pulmonary nodule (principal); I25.10 Atherosclerotic heart disease of native coronary artery without angina pectoris; J43.9 Emphysema, unspecified; K44.9 Diaphragmatic hernia without obstruction or gangrene
CPT/HCPCS: 71250